=== PATIENT | male | born 1925 | race Caucasian/White ===

== ENCOUNTER 2017-03-13 10:32 | Inpatient (IN) | payer MEDICARE, OTHER ==
[~2017-03-13] VITALS: Ht 177.8 cm; Wt 104.7 kg
[2017-03-13] VITALS (13 sets, daily range): BP systolic 106–162; BP diastolic 54–74; PULSE 68–83; RESP 10–24; TEMP 97.8–99.2; O2SAT 83–100
[~2017-03-13 10:32] MED LIST: ALBUAER3 INH; AMLO5 PO; ASPI1TAB57 PO; CLOP75TA PO; COLA100C5 PO; FOLI1TAB6 PO; HYDR-3801 PO; IPRAAER INH; IPRASOL INH; ISOS20TA PO; LANTUS2P SQ; LIPI10TA PO; LOSA100T PO; METH2.5T PO; MIRA3350 PO; NOVOINJ3 SQ; ROSU5 PO; SITA25 PO; SYNT25TA PO; TYLE325T PO; [UNRECOGNIZED DRUG - CODE] PO
[2017-03-13] MEDS ORDERED: SENNOSIDES 8.6 MG TAB PO PRN (10:45)
[2017-03-13] MEDS ORDERED: MAGNESIUM HYDROXIDE SUSP 30 ML CUP PO PRN (10:45)
[2017-03-13] MEDS ORDERED: CHLORHEXIDINE GLUCONATE 2 % 1 PACK (2 CLOTHS) TOP PRN (10:45)
[2017-03-13] MEDS ORDERED: RESP: ALBUTEROL 2.5 MG/IPRATROPIUM 0.5 MG NEB (PRN) INH (10:45)
[2017-03-13] MEDS ORDERED: DEXTROSE 50% IN WATER 50 ML VIAL(D50) IV PUSH PRN (10:45)
[2017-03-13] MEDS ORDERED: LACTULOSE SYRUP 20 GM/30 ML CUP PO PRN (10:45)
[2017-03-13] MEDS ORDERED: BISACODYL 10 MG SUPP RECTAL PRN (10:45)
[2017-03-13] MEDS ORDERED: GLUCAGON 1 MG/ML VIAL OTHER PRN (10:45)
[2017-03-13] MEDS ORDERED: MISCELLANEOUS NURSING INFORMATION XX SCH (10:45)
[2017-03-13] MEDS ORDERED: FOLI1TAB6 PO (10:46)
[2017-03-13] MEDS: RESP: ALBUTEROL 2.5 MG/IPRATROPIUM 0.5 MG NEB (SCH) INH ×3 (11:15→19:37)
[2017-03-13] MEDS ORDERED: FAMOTIDINE 20 MG/2 ML VIAL IV PUSH SCH (11:30)
[2017-03-13] MEDS: SODIUM CHLOR 0.9% 1000 ML INJ 1,000 ML IV SCH (11:30)
--- NOTE | 2017-03-13 11:30 | MH ---
cc: RACHANA TATUM M.D. DATE OF ADMISSION: 03/13/2017 HISTORY OF PRESENT ILLNESS: The patient is an 89-year-old male with past medical history of coronary artery disease, previous CABG, hypertension, diabetes mellitus, hyperlipidemia, prostate cancer, hypothyroidism and rheumatoid arthritis. The patient was initially hospitalized at [facility] for generalized weakness, frequent falls and difficulty ambulating. During his hospital stay, he was seen by a neurologist and had a CT scan of the brain which showed no acute intracranial findings. The patient was transferred to [facility] for therapy yesterday. According to his medical records, the patient was noted to have bradycardia at the outside facility. He also was evaluated by cardiology at [place] for syncope, which was thought secondary to beta-krystina and it was discontinued. A HaliCAT was called as the patient looked ashen and had questionable syncopal episode. He was placed back in bed where he improved spontaneously. The patient was transferred to the intensive care unit for close observation. When seen, he is on room air oxygen with a pulse of 69, blood pressure 130/59, saturation 95% on room air. A Segundo Blue was called in [facility]; however, the patient did not receive any medications or CPR. PAST MEDICAL HISTORY: His past medical history is significant for: 1. Hypertension. 2. Diabetes. 3. Hyperlipidemia. 4. Coronary artery disease. 5. Hypothyroidism. 6. Prostate cancer. 7. Rheumatoid arthritis. PAST SURGICAL HISTORY: 1. Previous kyphoplasty seven or eight years ago. 2. Previous CABG. 3. Previous catheterization. 4. Stent placement x5. 5. Previous abdominal surgery. ALLERGIES: NO KNOWN DRUG ALLERGIES. SOCIAL HISTORY: Remote history of tobacco use. CURRENT MEDICATIONS: 1. Aspirin. 2. Plavix. 3. Lipitor. 4. Boniva. 5. Insulin. 6. Synthroid. FAMILY HISTORY: Noncontributory to the present illness. REVIEW OF SYSTEMS: The review of systems is as per the history of present illness, and the rest of the review of systems is unremarkable. PHYSICAL EXAMINATION: GENERAL: An 89-year-old male lying in bed in no acute distress on room air oxygen. VITAL SIGNS: Afebrile, pulse of 69, blood pressure 138/59, saturation 95% on room air. HEAD, EYES, EARS, NOSE, THROAT: Normocephalic and atraumatic. Pupils equal, round and reactive to light and accommodation. Extraocular muscles intact. Conjunctivae are pink. Nonicteric sclerae. Oral mucosa within normal limits. NECK: The neck is supple. No jugular venous distention, adenopathy or thyromegaly. Trachea in the midline. CARDIOVASCULAR: Regular rate and rhythm. Normal S1-S2. No murmurs, rubs or gallops noted. PULMONARY: Bilateral equal air entry. No rales or wheezing. ABDOMEN: The abdomen is soft, obese, nontender and no distention. Positive bowel sounds. EXTREMITIES: No cyanosis, clubbing or edema. NEUROLOGIC: No focal sensory deficit. Awake and alert. LABORATORY DATA: None available. IMPRESSION: 1. Status post syncopal episode. 2. Generalized weakness and frequent falls. 3. History of coronary artery disease and CABG. 4. Hypertension. 5. Diabetes mellitus. 6. Hyperlipidemia. 7. Hypothyroidism. 8. History of prostate cancer. 9. Rheumatoid arthritis. RECOMMENDATIONS: 1. Monitor neuro status closely and avoid any sedatives. 2. I will proceed with CT scan of the brain without contrast. In addition, will obtain a Doppler ultrasound of the carotid arteries. 3. Monitor heart rate and blood pressure closely and maintain MAP greater than 65 mmHg. 4. Continue with aspirin 81 milligrams daily and Plavix 75 milligrams daily. 5. Avoid beta krystina or calcium channel krystina as the patient has a history of bradycardia, which was thought to be related to a beta krystina at [facility].. 6. Will obtain cardiac enzymes with troponin and EKG. 7. Will check 2D echocardiogram to evaluate left ventricular function and to rule out regional wall motion abnormalities. 8. Continue oxygen PRN to maintain saturations above 92%. 9. Bronchodilators in the form of DuoNeb q. 6 plus q. 2 PRN for shortness of breath. 10. Monitor renal function and electrolyte replacement as needed. Place on normal saline at 75 mL/hour. 11. Place on Pepcid for GI prophylaxis. Start Heart healthy diet as papo. 13. Monitor for signs of infection, which include fever and WBCs. Fraser culture if spikes fever. Will check a baseline chest x-ray. 14. Monitor CBC and continue with folic acid 1 [address] on sliding scale insulin with Accu-Chek for glycemic control. 16. Resume Synthroid at 25 micrograms daily, his home medication. 17. Check a baseline TSH level. 18. GI prophylaxis with Pepcid and DVT prophylaxis with SCDs and start heparin subcutaneous for DVT prophylaxis if CT brain is negative for acute findings. Case was discussed with the nursing staff and with the patient's son, who is present at the bedside. MD ELIZABETH Rowley/SANTOSH /10:45 AM /10:59 AM LEVAR
--- NOTE | 2017-03-13 11:49 | RADRPT ---
EXAM DATE/TIME: 03/13/2017 11:31 [facility] COMPARISON: No previous studies available for comparison. INDICATIONS : Syncopal episode. RADIATION DOSE: 32.86 CTDIvol (mGy) moderate motion artifact requiring repeating multiple slices. MEDICAL HISTORY : Stroke. Congestive heart failure. Hypertension.Diabetes, prostate cancer. SURGICAL HISTORY : None. ENCOUNTER: Initial ACUITY: 1 day PAIN SCALE: 2/10 LOCATION: Bilateral head TECHNIQUE: Multiple contiguous axial images were obtained of the head. Using automated exposure control and adj ustment of the mA and/or kV according to patient size, radiation dose was kept as low as reasonably a chievable to obtain optimal diagnostic quality images. DICOM format image data is available electro nically for review and comparison. FINDINGS: There is marked central and cortical atrophy with dilatation of ventricular and sulcal spaces. There is no parenchymal hemorrhage, acute infarction or mass lesion identified. There are no extra-axial fluid collections appreciated. The posterior fossa is unremarkable with midline fourth ventricle. T he portion of the orbits and paranasal sinuses visualized are unremarkable. CONCLUSION: Moderate motion artifact, atrophy, negative for acute process.. Harish Emmanuel MD FACR on March 13, 2017 at 11:45 Board Certified Radiologist. This report was verified electronically.
--- NOTE | 2017-03-13 11:52 | RADRPT ---
EXAM DATE/TIME: 03/13/2017 00:00 [facility] COMPARISON: No previous studies available for comparison. INDICATIONS : Shortness of breath. MEDICAL HISTORY : None. SURGICAL HISTORY : CABG. ENCOUNTER: Initial ACUITY: 1 day PAIN SCORE: Non-responsive. LOCATION: Bilateral chest FINDINGS: Moderate elevation right hemidiaphragm. Minimal bibasilar probable changes. Mild compensated cardio megaly. History of previous bypass. CONCLUSION: Bibasilar parenchymal changes with elevation right hemidiaphragm otherwise negative. Harish Emmanuel MD FACR on March 13, 2017 at 11:49 Board Certified Radiologist. This report was verified electronically.
[2017-03-13] MEDS: INSULIN NovoLIN REGULAR SUPPLEMENTAL SCALE SQ SCH ×2 (12:00→20:00)
[2017-03-13 12:29] LABS: AUTOMATED NEUTROPHIL # 5.4 TH/MM3 (1.8-7.7); BASOPHIL % 0.3 % (0.0-2.0); EOSINOPHIL # 0.1 TH/MM3 (0-0.4); EOSINOPHIL % 2.2 % (0.0-4.0); HEMATOCRIT 30.5 % (39.0-51.0); HEMOGLOBIN 10.4 GM/DL (13.0-17.0); LYMPH % 13.6 % (9.0-44.0); LYMPHOCYTE # 0.9 TH/MM3 (1.0-4.8); MEAN CELL VOLUME 92.3 FL (80.0-100.0); MEAN CORPUSCULAR HEMOGLOBIN 31.5 PG (27.0-34.0); MEAN CORPUSCULAR HGB CONC 34.1 % (32.0-36.0); MONO % 3.3 % (0.0-8.0); MONOCYTE # 0.2 TH/MM3 (0-0.9); NEUT % 80.6 % (16.0-70.0); PLATELET COUNT 146 TH/MM3 (150-450); RED BLOOD COUNT 3.31 MIL/MM3 (4.50-5.90); RED CELL DISTRIBUTION WIDTH 16.6 % (11.6-17.2); WHITE BLOOD COUNT 6.7 TH/MM3 (4.0-11.0)
[2017-03-13 12:35] LABS: INTERNATIONAL NORMALIZED RATIO 1.1 RATIO; PROTHROMBIN TIME - PATIENT 10.9 SEC (9.8-11.6)
[2017-03-13 12:42] LABS: ALBUMIN 2.6 GM/DL (3.4-5.0); AST (GOT) 76 U/L (15-37); BICARBONATE 30.1 MEQ/L (21.0-32.0); BLOOD UREA NITROGEN 22 MG/DL (7-18); CALCIUM 7.9 MG/DL (8.5-10.1); CHLORIDE 103 MEQ/L (98-107); CREATININE 1.24 MG/DL (0.60-1.30); GLOMERULAR FILTRATION RATE 55 ML/MIN (>89); GLUCOSE,RANDOM 178 MG/DL (74-106); SODIUM (NA) 139 MEQ/L (136-145)
[2017-03-13 12:48] LABS: ALKALINE PHOSPHATASE 84 U/L (45-117); ALT (GPT) 64 U/L (12-78); PHOSPHORUS 1.6 MG/DL (2.5-4.9); TOTAL BILIRUBIN ADULT 0.7 MG/DL (0.2-1.0); TROPONIN I 0.04 NG/ML (0.02-0.05)
[2017-03-13] MEDS ORDERED: MAGNESIUM OXIDE 400 MG TAB PO PRN (13:00)
[2017-03-13] MEDS ORDERED: POTASSIUM CHLORIDE 25 MEQ EFFERVESCENT TAB PO PRN (13:00)
[2017-03-13] MEDS ORDERED: POTASSIUM PHOSPHATE MONOBASIC 500 MG TAB PO PRN (13:00)
[2017-03-13] MEDS ORDERED: POTASSIUM PHOSPHATE MONOBASIC 500 MG TAB PO/TUBE PRN (13:00)
[2017-03-13] MEDS ORDERED: MAGNESIUM SULFATE INJ 2 GM in SODIUM CHLORIDE 0.9% INJ 96 ML IV PRN (13:00)
[2017-03-13] MEDS ORDERED: SODIUM PHOSPHATE INJ 30 MMOL in SODIUM CHLOR 0.9% 250 ML INJ 240 ML IV PRN (13:00)
[2017-03-13] MEDS ORDERED: POTASSIUM CHLOR 20 MEQ PREMIX 100 ML IV PRN ×2 (13:00)
[2017-03-13] MEDS ORDERED: POTASSIUM CHLOR 40 MEQ PREMIX 100 ML IV PRN ×2 (13:00)
[2017-03-13] MEDS ORDERED: POTASSIUM PHOSPHATE INJ 30 MMOL in SODIUM CHLOR 0.9% 250 ML INJ 250 ML IV PRN (13:00)
[2017-03-13] MEDS ORDERED: MAGNESIUM SULFATE INJ 4 GM in SODIUM CHLORIDE 0.9% INJ 92 ML IV PRN (13:00)
--- NOTE | 2017-03-13 14:59 | RADRPT ---
EXAM DATE/TIME: 03/13/2017 14:23 [facility] COMPARISON: No previous studies available for comparison. INDICATIONS : Syncope. MEDICAL HISTORY : Stroke. Congestive heart failure. Hypertension. Thyroid disease. Cardiomyopathy . COPD. Dyspnea. Arthritis. Diabetes. Prostate cancer. SURGICAL HISTORY : Orthopedic surgery. ENCOUNTER: Initial ACUITY: 1 day PAIN SCORE: 2/10 LOCATION: Bilateral neck PEAK SYSTOLIC VELOCITIES (cm/sec): ICA/CCA RATIO: Right: 1.1 Left: 1.1 ICA: Right: 83.8 Left: 80.6 CCA: Right: 76.5 Left: 72.9 ECA: Right: 103.2 Left: 123.9 VERTEBRAL: Right: 54.8 antegrade Left: 58.0 antegrade Elevated flow velocities and ICA/CCA ratios have been found to correlate with increased degrees of vessel stenosis, calculated as percentage of diameter relative to a normal segment of distal ICA/CCA FINDINGS: RIGHT CAROTID: There is no evidence for a hemodynamically significant carotid stenosis. Minimal int imal hyperplasia is present with scattered calcific plaque. LEFT CAROTID: There is no evidence for a hemodynamically significant carotid stenosis. Minimal inti mal hyperplasia is present with scattered calcific plaque. VERTEBRAL ARTERIES: Flow is antegrade in both vertebral arteries. MISCELLANEOUS: There are no ancillary masses or adenopathy. CONCLUSION: Negative examination for a hemodynamically significant carotid stenosis. Board Certified Radiologist. This report was verified electronically.
[2017-03-13] MEDS: DOCUSATE SODIUM 50 MG/SENNA 8.6 MG TAB PO SCH (22:14)
[2017-03-13] MEDS: FAMOTIDINE 20 MG TAB PO SCH (22:14)
[2017-03-13] MEDS: HEPARIN SODIUM - SQ 10,000 UNITS/ML VIAL SQ SCH (22:15)
[2017-03-14] VITALS (13 sets, daily range): BP systolic 116–159; BP diastolic 61–89; PULSE 62–106; RESP 14–22; TEMP 97.8–101; O2SAT 94–99
[2017-03-14] MEDS: RESP: ALBUTEROL 2.5 MG/IPRATROPIUM 0.5 MG NEB (SCH) INH ×6 (03:16→20:30)
[2017-03-14] MEDS: CHLORHEXIDINE GLUCONATE 2 % 1 PACK (2 CLOTHS) TOP SCH (04:00)
[2017-03-14] MEDS: INSULIN NovoLIN REGULAR SUPPLEMENTAL SCALE SQ SCH ×6 (04:00→20:56)
[2017-03-14 04:30] LABS: AUTOMATED NEUTROPHIL # 3.1 TH/MM3 (1.8-7.7); BASOPHIL % 0.3 % (0.0-2.0); EOSINOPHIL # 0.2 TH/MM3 (0-0.4); HEMATOCRIT 28.4 % (39.0-51.0); HEMOGLOBIN 9.3 GM/DL (13.0-17.0); LYMPH % 24.6 % (9.0-44.0); LYMPHOCYTE # 1.1 TH/MM3 (1.0-4.8); MEAN CORPUSCULAR HEMOGLOBIN 30.5 PG (27.0-34.0); MEAN CORPUSCULAR HGB CONC 32.8 % (32.0-36.0); MEAN PLATELET VOLUME 8.2 FL (7.0-11.0); MONO % 3.5 % (0.0-8.0); MONOCYTE # 0.2 TH/MM3 (0-0.9); NEUT % 67.6 % (16.0-70.0); PLATELET COUNT 146 TH/MM3 (150-450); RED BLOOD COUNT 3.06 MIL/MM3 (4.50-5.90); WHITE BLOOD COUNT 4.5 TH/MM3 (4.0-11.0)
[2017-03-14] MEDS: SODIUM CHLOR 0.9% 1000 ML INJ 1,000 ML IV SCH (04:42)
[2017-03-14 04:56] LABS: BICARBONATE 30.5 MEQ/L (21.0-32.0); CALCIUM 7.6 MG/DL (8.5-10.1); CREATININE 1.07 MG/DL (0.60-1.30); PHOSPHORUS 2.2 MG/DL (2.5-4.9)
[2017-03-14] MEDS: LEVOTHYROXINE SODIUM 25 MCG TAB PO SCH (05:59)
[2017-03-14] MEDS: HEPARIN SODIUM - SQ 10,000 UNITS/ML VIAL SQ SCH ×2 (09:20→20:57)
[2017-03-14] MEDS: ASPIRIN EC 81 MG TABEC PO SCH (09:20)
[2017-03-14] MEDS: DOCUSATE SODIUM 50 MG/SENNA 8.6 MG TAB PO SCH ×2 (09:21→20:57)
[2017-03-14] MEDS: FOLIC ACID 1 MG TAB PO SCH (09:21)
[2017-03-14] MEDS: CLOPIDOGREL 75 MG TAB PO SCH (09:21)
[2017-03-14] MEDS: FAMOTIDINE 20 MG TAB PO SCH ×2 (09:21→20:57)
--- NOTE | 2017-03-14 10:00 | HHI.CCPN ---
Subjective Remarks/Hospital Course Patient is an 89-year-old male with past medical history of coronary arterydisease, previous CABG, hypertension, diabetes mellitus, hyperlipidemia, prostate cancer, hypothyroidism and rheumatoid arthritis. The patient was initially hospitalized at [facility] for generalized weakness, frequent falls and difficulty ambulating. During his hospital stay, he was seen by a neurologist and had a CT scan of the brain which showed no acute intracranial findings. The patient was transferred to [facility] for therapy yesterday. According to his medical records, the patient was noted to have bradycardia at the outside facility. He also was evaluated by cardiology at [place] for syncope, which was thought secondary to beta-krystina and it was discontinued. A HaliCAT was called as the patient looked ashen and had questionable syncopal episode. He was placed back in bed where he improved spontaneously. The patient was transferred to the intensive care unit for close observation. When seen, he is on room air oxygen with a pulse of 69, blood pressure 130/59, saturation 95% on room air. A Code Blue was called in [facility]; however, the patient did not receive any medications or CPR. 03/14 No events overnight. Patient is lying in bed in NAD. Afebrile. Objective Vital Signs Date Time Temp Pulse Resp B/P (MAP) Pulse Ox O2 Delivery O2 Flow Rate FiO2 03/14/17 06:00 67 03/14/17 04:00 97.8 16 146/68 (94) 96 03/13/17 19:38 Nasal Cannula 3.00 Intake and Output 03/14/17 03/14/17 03/15/17 08:00 16:00 00:00 Intake Total 1709 ml Output Total 500 ml Balance 1209 ml Result Diagram: 03/14/17 0347 03/14/17 0347 Other Results Laboratory Tests Test 03/13/17 12:05 03/13/17 14:20 03/14/17 03:47 White Blood Count 6.7 TH/MM3 4.5 TH/MM3 Red Blood Count 3.31 MIL/MM3 3.06 MIL/MM3 Hemoglobin 10.4 GM/DL 9.3 GM/DL Hematocrit 30.5 % 28.4 % Mean Corpuscular Volume 92.3 FL 93.0 FL Mean Corpuscular Hemoglobin 31.5 PG 30.5 PG Mean Corpuscular Hemoglobin Concent 34.1 % 32.8 % Red Cell Distribution Width 16.6 % 17.0 % Platelet Count 146 TH/MM3 146 TH/MM3 Mean Platelet Volume 8.0 FL 8.2 FL Neutrophils (%) (Auto) 80.6 % 67.6 % Lymphocytes (%) (Auto) 13.6 % 24.6 % Monocytes (%) (Auto) 3.3 % 3.5 % Eosinophils (%) (Auto) 2.2 % 4.0 % Basophils (%) (Auto) 0.3 % 0.3 % Neutrophils # (Auto) 5.4 TH/MM3 3.1 TH/MM3 Lymphocytes # (Auto) 0.9 TH/MM3 1.1 TH/MM3 Monocytes # (Auto) 0.2 TH/MM3 0.2 TH/MM3 Eosinophils # (Auto) 0.1 TH/MM3 0.2 TH/MM3 Basophils # (Auto) 0.0 TH/MM3 0.0 TH/MM3 CBC Comment DIFF FINAL DIFF FINAL Differential Comment Prothrombin Time 10.9 SEC Prothromb Time International Ratio 1.1 RATIO Blood Urea Nitrogen 22 MG/DL 20 MG/DL Creatinine 1.24 MG/DL 1.07 MG/DL Random Glucose 178 MG/DL 148 MG/DL Total Protein 6.0 GM/DL Albumin 2.6 GM/DL Calcium Level 7.9 MG/DL 7.6 MG/DL Phosphorus Level 1.6 MG/DL 2.2 MG/DL Magnesium Level 2.0 MG/DL 2.0 MG/DL Alkaline Phosphatase 84 U/L Aspartate Amino Transf (AST/SGOT) 76 U/L Alanine Aminotransferase (ALT/SGPT) 64 U/L Total Bilirubin 0.7 MG/DL Sodium Level 139 MEQ/L 139 MEQ/L Potassium Level 3.7 MEQ/L 3.6 MEQ/L Chloride Level 103 MEQ/L 105 MEQ/L Carbon Dioxide Level 30.1 MEQ/L 30.5 MEQ/L Anion Gap 6 MEQ/L 4 MEQ/L Estimat Glomerular Filtration Rate 55 ML/MIN 65 ML/MIN Total Creatine Kinase 30 U/L Troponin I 0.04 NG/ML Thyroid Stimulating Hormone 3rd Gen 3.510 uIU/ML Nasal Screen MRSA (PCR) MRSA NOT DETECTED Imaging Last Impressions Head CT 03/13/17 0000 Signed Impressions: Service Date/Time: Monday, March 13, 2017 11:31 - CONCLUSION: Moderate motion artifact, atrophy, negative for acute process.. Harish Emmanuel MD FACR Chest X-Ray 03/13/17 0000 Signed Impressions: Service Date/Time: Monday, March 13, 2017 00:00 - CONCLUSION: Bibasilar parenchymal changes with elevation right hemidiaphragm otherwise negative. Harish Emmanuel MD FACR Carotid Artery Ultrasound 03/13/17 0000 Signed Impressions: Service Date/Time: Monday, March 13, 2017 14:23 - CONCLUSION: Negative examination for a hemodynamically significant carotid stenosis. Board Certified Radiologist. This report was verified electronically. Objective Remarks GENERAL: Patient is 89 yo lying in bed in NAD SKIN: Warm and dry. HEAD: Normocephalic. EYES: No scleral icterus. No injection or drainage. NECK: Supple, trachea midline. No JVD or lymphadenopathy. CARDIOVASCULAR: Regular rate and rhythm without murmurs, gallops, or rubs. RESPIRATORY: Breath sounds equal bilaterally. No accessory muscle use. GASTROINTESTINAL: Abdomen soft, non-tender, nondistended. MUSCULOSKELETAL: No cyanosis, or edema. Neuro: Awake A/P Assessment and Plan 1. Status post syncopal episode. 2. Generalized weakness and frequent falls. 3. History of coronary artery disease and CABG. 4. Hypertension. 5. Diabetes mellitus. 6. Hyperlipidemia. 7. Hypothyroidism. 8. History of prostate cancer. 9. Rheumatoid arthritis. Plan Neuro: Monitor neuro status closely and avoid any sedatives. CT brain yesterday negative for acute process. Doppler US carotid arteries: Negative for hemodynamically significant carotid stenosis. CV: Monitor HR and BP and maintain MAP> 65 mmHg. Continue with ASA 81 mg daily and Plavix 75 mg daily. Avoid beta krystina or calcium channel krystina as the patient has a history of bradycardia, which was thought to be related to a beta krystina at [facility].. Check 2D echo to evaluate left ventricular function Pulm: Continue oxygen PRN to maintain sats > 92%. Bronchodilators : Monitor renal function and electrolyte replacement as needed. Will need Phos replacement today GI: On Pepcid for GI prophylaxis. Heart healthy diet ID: Monitor for signs of infection( fever and WBCs). Fraser culture if spikes fever. Endo: SSI with Accu-Chek for glycemic control. On Synthroid at 25 mcg daily, TSH: 3.5 GI prophylaxis with Pepcid and DVT prophylaxis with SCDs/Heparin SQ Level 2 Saundra Mehta MD Mar 14, 2017 10:00
--- NOTE | 2017-03-14 17:45 | ECHRPT ---
Indication: SYNCOPAL EPISODE CONCLUSIONS Normal left ventricular size. Wall thickness is measured at the upper limits of normal. The left ventricular systolic function is low normal with an estimated ejection fraction in the rang e of 50- 55%. Mitral annular calcification is present. Mild thickening of the mitral valve leaflets. Mild mitral valve regurgitation. Aortic valve sclerosis is present. There is mild tricuspid valve regurgitation. There is estimated moderate pulmonary hypertension present (55 mmHg). BP: / HR: Rhythm: MEASUREMENTS (Male / Female) Normal Values Technical Quality: 2D ECHO LV Diastolic Diameter PLAX 4.5 cm 4.2 - 5.9 / 3.9 - 5.3 cm LV Systolic Diameter PLAX 3.5 cm IVS Diastolic Thickness 1.2 cm 0.6 - 1.0 / 0.6 - 0.9 cm LVPW Diastolic Thickness 0.7 cm 0.6 - 1.0 / 0.6 - 0.9 cm LV Relative Wall Thickness 0.4 RV Internal Dim ED PLAX 2.6 cm LA Systolic Diameter LX 3.7 cm 3.0 - 4.0 / 2.7 - 3.8 cm DOPPLER AV Peak Velocity 132.0 cm/s AV Peak Gradient 7.0 mmHg Mitral E Point Velocity 98.7 cm/s Mitral A Point Velocity 103.0 cm/s Mitral E to A Ratio 1.0 TR Peak Velocity 353.0 cm/s TR Peak Gradient 49.8 mmHg FINDINGS LEFT VENTRICLE Normal left ventricular size. Wall thickness is measured at the upper limits of normal. The left ventricular systolic function is low normal with an estimated ejection fraction in the rang e of 50- 55%. RIGHT VENTRICLE Normal right ventricular size and systolic function. LEFT ATRIUM The left atrial size is normal. RIGHT ATRIUM The right atrial size is normal. ATRIAL SEPTUM Normal atrial septal thickness without atrial level shunting by limited color doppler interrogation. AORTA The aortic root and proximal ascending aorta are normal in size on limited imaging. MITRAL VALVE Mitral annular calcification is present. Mild thickening of the mitral valve leaflets. Mild mitral valve regurgitation. AORTIC VALVE Aortic valve sclerosis is present. TRICUSPID VALVE There is mild tricuspid valve regurgitation. There is estimated moderate pulmonary hypertension present (55 mmHg). PULMONARY VALVE The pulmonary valve is not well visualized. VESSELS The inferior vena cava is normal in size. PERICARDIUM No pericardial effusion. Ted Archuleta MD, FACC (Electronically Signed) Final Date:14 March 2017 17:44
[2017-03-15] VITALS (19 sets, daily range): BP systolic 127–168; BP diastolic 59–79; PULSE 72–98; RESP 16–21; TEMP 97.5–99.2; O2SAT 93–100
[2017-03-15] MEDS: RESP: ALBUTEROL 2.5 MG/IPRATROPIUM 0.5 MG NEB (SCH) INH ×7 (03:49→23:56)
[2017-03-15] MEDS: CHLORHEXIDINE GLUCONATE 2 % 1 PACK (2 CLOTHS) TOP SCH (04:00)
[2017-03-15] MEDS: INSULIN NovoLIN REGULAR SUPPLEMENTAL SCALE SQ SCH ×6 (05:48→21:06)
[2017-03-15 06:45] LABS: AUTOMATED NEUTROPHIL # 2.1 TH/MM3 (1.8-7.7); BASOPHIL % 0.2 % (0.0-2.0); EOSINOPHIL # 0.2 TH/MM3 (0-0.4); EOSINOPHIL % 4.4 % (0.0-4.0); HEMATOCRIT 29.2 % (39.0-51.0); HEMOGLOBIN 9.6 GM/DL (13.0-17.0); LYMPH % 37.2 % (9.0-44.0); LYMPHOCYTE # 1.5 TH/MM3 (1.0-4.8); MEAN CELL VOLUME 93.6 FL (80.0-100.0); MEAN CORPUSCULAR HEMOGLOBIN 30.9 PG (27.0-34.0); MEAN PLATELET VOLUME 8.1 FL (7.0-11.0); MONO % 5.6 % (0.0-8.0); MONOCYTE # 0.2 TH/MM3 (0-0.9); NEUT % 52.6 % (16.0-70.0); PLATELET COUNT 153 TH/MM3 (150-450); RED BLOOD COUNT 3.12 MIL/MM3 (4.50-5.90); RED CELL DISTRIBUTION WIDTH 16.5 % (11.6-17.2); WHITE BLOOD COUNT 3.9 TH/MM3 (4.0-11.0)
[2017-03-15 07:06] LABS: BICARBONATE 28.1 MEQ/L (21.0-32.0); CALCIUM 7.4 MG/DL (8.5-10.1); CREATININE 0.81 MG/DL (0.60-1.30); MAGNESIUM 1.9 MG/DL (1.5-2.5); PHOSPHORUS 2.1 MG/DL (2.5-4.9)
--- NOTE | 2017-03-15 09:21 | EKG ---
Date Performed: 03/13/2017 Time Performed: 16:16:02 PTAGE: 89 years EKG: Sinus rhythm WITH FIRST DEGREE AV BLOCK VOLTAGE CRITERIA FOR LVH POSSIBLE ANTERIOR MYOCARDIAL INFARCTION , OF IND ETERMINATE AGE INFERIOR MYOCARDIAL INFARCTION , PROBABLY OLD MODERATE T-WAVE ABNORMALITY ABNORMAL ECG PREVIOUS TRACING : 09/25/1999 07.48 Compared to the previous tracing abnormal R wave progressio n present DOCTOR: Ted Archuleta Interpretating Date/Time 03/15/2017 09:20:24
[2017-03-15] MEDS: CLOPIDOGREL 75 MG TAB PO SCH (09:31)
[2017-03-15] MEDS: ASPIRIN EC 81 MG TABEC PO SCH (09:31)
[2017-03-15] MEDS: FAMOTIDINE 20 MG TAB PO SCH ×2 (09:31→21:04)
[2017-03-15] MEDS: FOLIC ACID 1 MG TAB PO SCH (09:31)
[2017-03-15] MEDS: DOCUSATE SODIUM 50 MG/SENNA 8.6 MG TAB PO SCH ×2 (09:31→21:00)
[2017-03-15] MEDS: HEPARIN SODIUM - SQ 10,000 UNITS/ML VIAL SQ SCH ×2 (09:32→21:05)
--- NOTE | 2017-03-15 13:04 | HHI.CCPN ---
Subjective Remarks/Hospital Course Patient is an 89-year-old male with past medical history of coronary arterydisease, previous CABG, hypertension, diabetes mellitus, hyperlipidemia, prostate cancer, hypothyroidism and rheumatoid arthritis. The patient was initially hospitalized at [facility] for generalized weakness, frequent falls and difficulty ambulating. During his hospital stay, he was seen by a neurologist and had a CT scan of the brain which showed no acute intracranial findings. The patient was transferred to [facility] for therapy yesterday. According to his medical records, the patient was noted to have bradycardia at the outside facility. He also was evaluated by cardiology at [place] for syncope, which was thought secondary to beta-krystina and it was discontinued. A HaliCAT was called as the patient looked ashen and had questionable syncopal episode. He was placed back in bed where he improved spontaneously. The patient was transferred to the intensive care unit for close observation. When seen, he is on room air oxygen with a pulse of 69, blood pressure 130/59, saturation 95% on room air. [facility]; however, the patient did not receive any medications or CPR. 03/14 No events overnight. Patient is lying in bed in NAD. Afebrile. 03/15: Objective Vital Signs Date Time Temp Pulse Resp B/P (MAP) Pulse Ox O2 Delivery O2 Flow Rate FiO2 03/15/17 11:41 93 03/15/17 11:00 79 03/15/17 09:04 Nasal Cannula 2.00 03/15/17 08:00 98.5 16 162/75 (104) Intake and Output 03/15/17 03/15/17 03/16/17 08:00 16:00 00:00 Intake Total 1875 ml Output Total 850 ml Balance 1025 ml Result Diagram: 03/15/17 0427 03/15/17 0427 Imaging Last Impressions Head CT 03/13/17 0000 Signed Impressions: Service Date/Time: Monday, March 13, 2017 11:31 - CONCLUSION: Moderate motion artifact, atrophy, negative for acute process.. Harish Emmanuel MD FACR Chest X-Ray 03/13/17 0000 Signed Impressions: Service Date/Time: Monday, March 13, 2017 00:00 - CONCLUSION: Bibasilar parenchymal changes with elevation right hemidiaphragm otherwise negative. Harish Emmanuel MD FACR Carotid Artery Ultrasound 03/13/17 0000 Signed Impressions: Service Date/Time: Monday, March 13, 2017 14:23 - CONCLUSION: Negative examination for a hemodynamically significant carotid stenosis. Board Certified Radiologist. This report was verified electronically. Objective Remarks GENERAL: Patient is 89 yo lying in bed in NAD SKIN: Warm and dry. HEAD: Normocephalic. EYES: No scleral icterus. No injection or drainage. NECK: Supple, trachea midline. No JVD or lymphadenopathy. CARDIOVASCULAR: Regular rate and rhythm without murmurs, gallops, or rubs. RESPIRATORY: Breath sounds equal bilaterally. No accessory muscle use. GASTROINTESTINAL: Abdomen soft, non-tender, nondistended. MUSCULOSKELETAL: No cyanosis, or edema. Neuro: Awake A/P Assessment and Plan 1. Status post syncopal episode. 2. Generalized weakness and frequent falls. 3. History of coronary artery disease and CABG. 4. Hypertension. 5. Diabetes mellitus. 6. Hyperlipidemia. 7. Hypothyroidism. 8. History of prostate cancer. 9. Rheumatoid arthritis. Plan Neuro: Monitor neuro status closely and avoid any sedatives. CT brain yesterday negative for acute process. Doppler US carotid arteries: Negative for hemodynamically significant carotid stenosis. CV: Monitor HR and BP and maintain MAP> 65 mmHg. Continue with ASA 81 mg daily and Plavix 75 mg daily. Avoid beta krystina or calcium channel krystina as the patient has a history of bradycardia, which was thought to be related to a beta krystina at [facility].. Check 2D echo to evaluate left ventricular function Pulm: Continue oxygen PRN to maintain sats > 92%. Bronchodilators : Monitor renal function and electrolyte replacement as needed. Will need Phos replacement today GI: On Pepcid for GI prophylaxis. Heart healthy diet ID: Monitor for signs of infection( fever and WBCs). Fraser culture if spikes fever. Endo: SSI with Accu-Chek for glycemic control. On Synthroid at 25 mcg daily, TSH: 3.5 GI prophylaxis with Pepcid and DVT prophylaxis with SCDs/Heparin SQ Level 2 Henri Meyers MD Mar 15, 2017 13:04
[2017-03-16] VITALS (9 sets, daily range): BP systolic 137–190; BP diastolic 60–88; PULSE 74–97; RESP 18–20; TEMP 98–98.9; O2SAT 94–97
[2017-03-16] MEDS: INSULIN NovoLIN REGULAR SUPPLEMENTAL SCALE SQ SCH ×6 (00:11→20:39)
[2017-03-16] MEDS: RESP: ALBUTEROL 2.5 MG/IPRATROPIUM 0.5 MG NEB (SCH) INH ×7 (03:36→23:37)
[2017-03-16] MEDS: CHLORHEXIDINE GLUCONATE 2 % 1 PACK (2 CLOTHS) TOP SCH (04:00)
[2017-03-16] MEDS: cloNIDine HCL 0.1 MG TAB PO PRN ×2 (04:52→17:20)
[2017-03-16] MEDS: LEVOTHYROXINE SODIUM 25 MCG TAB PO SCH ×2 (05:56→06:33)
[2017-03-16] MEDS: ASPIRIN EC 81 MG TABEC PO SCH (08:18)
[2017-03-16] MEDS: FAMOTIDINE 20 MG TAB PO SCH ×2 (08:19→20:38)
[2017-03-16] MEDS: HEPARIN SODIUM - SQ 10,000 UNITS/ML VIAL SQ SCH ×2 (08:19→20:38)
[2017-03-16] MEDS: FOLIC ACID 1 MG TAB PO SCH (08:19)
[2017-03-16] MEDS: CLOPIDOGREL 75 MG TAB PO SCH (08:19)
[2017-03-16] MEDS: DOCUSATE SODIUM 50 MG/SENNA 8.6 MG TAB PO SCH ×2 (08:19→20:38)
--- NOTE | 2017-03-16 13:43 | HHI.PR ---
Subjective Remarks Follow-up syncopal episode. Patient denies chest pain, dyspnea, lightheadedness , dizziness. Does report cough that started this morning. Cough is nonproductive. Objective Vitals Vital Signs Date Time Temp Pulse Resp B/P (MAP) Pulse Ox O2 Delivery O2 Flow Rate FiO2 03/16/17 11:56 98.8 74 18 172/75 (107) 95 03/16/17 08:01 98.0 84 18 137/60 (85) 95 03/16/17 07:56 96 03/16/17 04:00 98.9 75 18 166/79 (108) 95 03/16/17 00:00 98.5 88 20 172/85 (114) 94 03/15/17 21:11 93 21 03/15/17 20:00 98.2 85 20 153/71 (98) 93 03/15/17 17:18 97.5 78 19 164/79 (107) 97 03/15/17 16:08 99 21 03/15/17 14:47 97.9 76 18 142/68 (92) 97 03/15/17 14:00 77 I/O 03/15/17 03/15/17 03/15/17 03/16/17 03/16/17 03/16/17 07:00 15:00 23:00 07:00 15:00 23:00 Intake Total 1650 ml 225 ml 480 ml Output Total 850 ml 450 ml 650 ml Balance 800 ml -225 ml 480 ml -650 ml Intake Oral 100 ml 480 ml IV Total 1550 ml 225 ml Output Urine Total 850 ml 450 ml 650 ml # Voids 1 # Bowel Movements 1 1 0 Result Diagram: 03/15/1742603/15/17426 Imaging Last Impressions Head CT 03/13/17 0000 Signed Impressions: Service Date/Time: Monday, March 13, 2017 11:31 - CONCLUSION: Moderate motion artifact, atrophy, negative for acute process.. Harish Emmanuel MD FACR Chest X-Ray 03/13/17 0000 Signed Impressions: Service Date/Time: Monday, March 13, 2017 00:00 - CONCLUSION: Bibasilar parenchymal changes with elevation right hemidiaphragm otherwise negative. Harish Emmanuel MD FACR Carotid Artery Ultrasound 03/13/17 0000 Signed Impressions: Service Date/Time: Monday, March 13, 2017 14:23 - CONCLUSION: Negative examination for a hemodynamically significant carotid stenosis. Board Certified Radiologist. This report was verified electronically. Objective Remarks General: Elderly male in no acute distress. Hard of hearing. Heart: Regular rate and rhythm. No murmur. Lungs: Clear to auscultation bilaterally. No wheezes, rales, or rhonchi. Breathing is nonlabored. Abdomen: Soft, nontender, nondistended. Extremities: No lower extremity edema. Psych: Alert and oriented. Procedures None Urinary Catheter: No Vascular Central Line Catheter: No A/P Assessment and Plan 1. Syncopal episode: Patient had episodes of bradycardia, felt to be related to beta krystina. The beta krystina has been discontinued. 2-D echocardiogram noted. Carotid artery ultrasound negative. CT of the head is negative. Monitor on telemetry. 2. Generalized weakness, frequent falls: Continue PT. 3. Coronary artery disease: Continue aspirin, Plavix. 4. Diabetes mellitus: Monitor Accu-Cheks and cover with sliding scale insulin. 5. Hypothyroidism: Continue Synthroid. 6. GI prophylaxis: Pepcid. 7. DVT prophylaxis: SCDs, heparin. 8. Hypertension: Avoid beta krystina, calcium channel krystina secondary to bradycardia, syncope. 9. Cough: Continue oxygen as needed. Bronchodilators as needed. Discharge Planning Possible discharge back to inpatient rehabilitation tomorrow. Rafael Obando MD Mar 16, 2017 13:43
[2017-03-17] VITALS: BP 125/68; PULSE 84; RESP 18; TEMP 97.9; O2SAT 95
[2017-03-17] MEDS: INSULIN NovoLIN REGULAR SUPPLEMENTAL SCALE SQ SCH ×4 (00:15→12:25)
[2017-03-17] MEDS: RESP: ALBUTEROL 2.5 MG/IPRATROPIUM 0.5 MG NEB (SCH) INH ×3 (03:30→11:31)
[2017-03-17 04:00] VITALS: BP 154/72; PULSE 67; RESP 18; TEMP 98; O2SAT 94
[2017-03-17] MEDS: CHLORHEXIDINE GLUCONATE 2 % 1 PACK (2 CLOTHS) TOP SCH (04:00)
[2017-03-17] MEDS: LEVOTHYROXINE SODIUM 25 MCG TAB PO SCH (05:57)
[2017-03-17 08:00] VITALS: BP 155/77; PULSE 63; RESP 18; TEMP 98.3; O2SAT 96
--- NOTE | 2017-03-17 08:55 | HHI.PR ---
Subjective Remarks Follow up syncopal episode. Patient denies chest pain, dyspnea. Does report nonproductive cough. Is requesting cough drops. Objective Vitals Vital Signs Date Time Temp Pulse Resp B/P (MAP) Pulse Ox O2 Delivery O2 Flow Rate FiO2 03/17/17 04:00 98.0 67 18 154/72 (99) 94 03/17/17 00:00 97.9 84 18 125/68 (87) 95 03/16/17 23:39 96 03/16/17 20:33 94 21 03/16/17 20:00 98.2 79 18 175/84 (114) 96 03/16/17 16:57 98.1 97 18 190/88 (122) 97 171/76 (107) 03/16/17 11:56 98.8 74 18 172/75 (107) 95 I/O 03/16/17 03/16/17 03/16/17 03/17/17 03/17/17 03/17/17 07:00 15:00 23:00 07:00 15:00 23:00 Output Total 650 ml 300 ml 325 ml 400 ml Balance -650 ml -300 ml -325 ml -400 ml Output Urine Total 650 ml 300 ml 325 ml 400 ml # Bowel Movements 0 0 Result Diagram: 03/15/1742603/15/17426 Imaging Last Impressions Head CT 03/13/17 0000 Signed Impressions: Service Date/Time: Monday, March 13, 2017 11:31 - CONCLUSION: Moderate motion artifact, atrophy, negative for acute process.. Harish Emmanuel MD FACR Chest X-Ray 03/13/17 0000 Signed Impressions: Service Date/Time: Monday, March 13, 2017 00:00 - CONCLUSION: Bibasilar parenchymal changes with elevation right hemidiaphragm otherwise negative. Harish Emmanuel MD FACR Carotid Artery Ultrasound 03/13/17 0000 Signed Impressions: Service Date/Time: Monday, March 13, 2017 14:23 - CONCLUSION: Negative examination for a hemodynamically significant carotid stenosis. Board Certified Radiologist. This report was verified electronically. Objective Remarks General: Elderly male in no acute distress. Hard of hearing. Heart: Regular rate and rhythm. No murmur. Lungs: Clear to auscultation bilaterally. No wheezes, rales, or rhonchi. Breathing is nonlabored. Abdomen: Soft, nontender, nondistended. Extremities: No lower extremity edema. Psych: Alert and oriented. Procedures None Urinary Catheter: No Vascular Central Line Catheter: No A/P Assessment and Plan 1. Syncopal episode: Patient had episodes of bradycardia, felt to be related to beta krystina. The beta krystina has been discontinued. 2-D echocardiogram noted. Carotid artery ultrasound negative. CT of the head is negative. Monitor on telemetry. Occasional PVCs noted, but otherwise sinus rhythm. 2. Generalized weakness, frequent falls: Continue PT. 3. Coronary artery disease: Continue aspirin, Plavix. 4. Diabetes mellitus: Monitor Accu-Cheks and cover with sliding scale insulin. 5. Hypothyroidism: Continue Synthroid. 6. GI prophylaxis: Pepcid. 7. DVT prophylaxis: SCDs, heparin. 8. Hypertension: Avoid beta krystina, calcium channel krystina secondary to bradycardia, syncope. 9. Cough: Continue oxygen as needed. Bronchodilators as needed. Discharge Planning Plan for discharge back to inpatient rehabilitation today pending lab results and review of telemetry. Rafael Obando MD Mar 17, 2017 08:55
--- NOTE | 2017-03-17 08:58 | HHI.DCPOC ---
Discharge Care Plan Diagnosis: (1) Syncope (2) Frequent falls (3) Bradycardia (4) Hyperlipidemia (5) Hypothyroidism (6) Hypertension Goals to Promote Your Health * To prevent worsening of your condition and complications * To maintain your health at the optimal level Directions to Meet Your Goals Take your medications as prescribed Follow your dietary instruction Follow activity as directed Keep your appointments as scheduled Take your immunizations and boosters as scheduled If your symptoms worsen call your PCP, if no PCP go to Urgent Care Center or Emergency Room Smoking is Dangerous to Your Health. Avoid second hand smoke Call the 24-hour hour crisis hotline for domestic abuse at Rafael Obando MD Mar 17, 2017 08:58
[2017-03-17 09:23] VITALS: O2SAT 94
[2017-03-17] MEDS: FAMOTIDINE 20 MG TAB PO SCH (09:23)
[2017-03-17] MEDS: DOCUSATE SODIUM 50 MG/SENNA 8.6 MG TAB PO SCH (09:24)
[2017-03-17] MEDS: CLOPIDOGREL 75 MG TAB PO SCH (09:24)
[2017-03-17] MEDS: ASPIRIN EC 81 MG TABEC PO SCH (09:24)
[2017-03-17] MEDS: FOLIC ACID 1 MG TAB PO SCH (09:25)
[2017-03-17] MEDS: HEPARIN SODIUM - SQ 10,000 UNITS/ML VIAL SQ SCH (09:25)
[2017-03-17 10:11] LABS: BASOPHIL % 0.5 % (0.0-2.0); EOSINOPHIL # 0.4 TH/MM3 (0-0.4); EOSINOPHIL % 10.6 % (0.0-4.0); HEMATOCRIT 30.9 % (39.0-51.0); LYMPH % 24.2 % (9.0-44.0); LYMPHOCYTE # 0.9 TH/MM3 (1.0-4.8); MEAN CELL VOLUME 94.6 FL (80.0-100.0); MEAN CORPUSCULAR HEMOGLOBIN 30.8 PG (27.0-34.0); MEAN CORPUSCULAR HGB CONC 32.5 % (32.0-36.0); MONO % 12.6 % (0.0-8.0); MONOCYTE # 0.5 TH/MM3 (0-0.9); NEUT % 52.1 % (16.0-70.0); PLATELET COUNT 134 TH/MM3 (150-450); RED BLOOD COUNT 3.27 MIL/MM3 (4.50-5.90); RED CELL DISTRIBUTION WIDTH 17.6 % (11.6-17.2); WHITE BLOOD COUNT 3.8 TH/MM3 (4.0-11.0)
[2017-03-17 10:39] LABS: BICARBONATE 27.1 MEQ/L (21.0-32.0); CALCIUM 8.1 MG/DL (8.5-10.1); CREATININE 0.95 MG/DL (0.60-1.30)
[2017-03-17 12:00] VITALS: BP 156/75; PULSE 75; RESP 18; TEMP 98; O2SAT 96
[2017-03-17] MEDS ORDERED: MENTHOL LOZENGE BUCCAL PRN (13:00)
--- NOTE | 2017-03-17 14:49 | HHI.DS ---
Discharge Summary Admission Date Mar 13, 2017 at 10:32 Discharge Date: Mar 17, 2017 Admitting Diagnosis Syncope (1) Syncope ICD Code: R55 - Syncope and collapse (2) Hypertension ICD Code: I10 - Essential (primary) hypertension Status: Chronic (3) Hypothyroidism ICD Code: E03.9 - Hypothyroidism, unspecified Status: Chronic (4) Hyperlipidemia ICD Code: E78.5 - Hyperlipidemia, unspecified Status: Chronic (5) Bradycardia ICD Code: R00.1 - Bradycardia, unspecified Status: Acute Procedures None Brief History - From Admission The patient is an 89-year-old male with past medical history of coronary artery disease, previous CABG, hypertension, diabetes mellitus, hyperlipidemia, prostate cancer, hypothyroidism and rheumatoid arthritis. The patient was initially hospitalized at [facility] for generalized weakness, frequent falls and difficulty ambulating. During his hospital stay, he was seen by a neurologist and had a CT scan of the brain which showed no acute intracranial findings. The patient was transferred to [facility] for therapy yesterday. According to his medical records, the patient was noted to have bradycardia at the outside facility. He also was evaluated by cardiology at [facility] for syncope, which was thought secondary to beta-krystina and it was discontinued. A HaliCAT was called as the patient looked ashen and had questionable syncopal episode. He was placed back in bed where he improved spontaneously. The patient was transferred to the intensive care unit for close observation. When seen, he is on room air oxygen with a pulse of 69, blood pressure 130/59, saturation 95% on room air. A Code Earle was called in [facility]; however, the patient did not receive any medications or CPR. CBC/BMP: 03/17/17 0950 03/17/17 0950 Significant Findings Laboratory Tests Test 03/15/17 04:27 03/17/17 09:50 White Blood Count 3.9 TH/MM3 (4.0-11.0) 3.8 TH/MM3 (4.0-11.0) Red Blood Count 3.12 MIL/MM3 (4.50-5.90) 3.27 MIL/MM3 (4.50-5.90) Hemoglobin 9.6 GM/DL (13.0-17.0) 10.0 GM/DL (13.0-17.0) Hematocrit 29.2 % (39.0-51.0) 30.9 % (39.0-51.0) Eosinophils (%) (Auto) 4.4 % (0.0-4.0) 10.6 % (0.0-4.0) Blood Urea Nitrogen 19 MG/DL (7-18) Random Glucose 181 MG/DL (74-106) 259 MG/DL (74-106) Total Protein 6.0 GM/DL (6.4-8.2) Calcium Level 7.4 MG/DL (8.5-10.1) 8.1 MG/DL (8.5-10.1) Phosphorus Level 2.1 MG/DL (2.5-4.9) Protein Corrected Calcium 8.0 MG/DL (8.5-10.1) Red Cell Distribution Width 17.6 % (11.6-17.2) Platelet Count 134 TH/MM3 (150-450) Monocytes (%) (Auto) 12.6 % (0.0-8.0) Lymphocytes # (Auto) 0.9 TH/MM3 (1.0-4.8) Estimat Glomerular Filtration Rate 75 ML/MIN (>89) Imaging Last Impressions Head CT 03/13/17 Signed Impressions: Service Date/Time: Monday, March 13, 2017 11:31 - CONCLUSION: Moderate motion artifact, atrophy, negative for acute process.. Harish Emmanuel MD FACR Chest X-Ray 03/13/17 Signed Impressions: Service Date/Time: Monday, March 13, 2017 00:00 - CONCLUSION: Bibasilar parenchymal changes with elevation right hemidiaphragm otherwise negative. Harish Emmanuel MD FACR Carotid Artery Ultrasound 03/13/17 Signed Impressions: Service Date/Time: Monday, March 13, 2017 14:23 - CONCLUSION: Negative examination for a hemodynamically significant carotid stenosis. Board Certified Radiologist. This report was verified electronically. MD HERNANDEZ at Discharge General: Elderly male in no acute distress. Hard of hearing. Heart: Regular rate and rhythm. No murmur. Lungs: Clear to auscultation bilaterally. No wheezes, rales, or rhonchi. Breathing is nonlabored. Abdomen: Soft, nontender, nondistended. Extremities: No lower extremity edema. Psych: Alert and oriented. Hospital Course Patient was admitted to the ICU under the critical care service for further evaluation of syncope, bradycardia. The patient's symptoms improved. He was transferred to the medical/surgical floor under the hospitalist service. Telemetry showed occasional PVCs and rate in the 90s. Physical therapy evaluated the patient. Echocardiogram showed ejection fraction 50-55%. He was felt to be stable for discharge back to inpatient rehabilitation. Pt Condition on Discharge: Stable Discharge Disposition: Rehab Inpatient Discharge Time: > 30 minutes Discharge Instructions DIET: Follow Instructions for: Heart Healthy Diet, Diabetic Diet Activities you can perform: Regular-No Restrictions Follow up Referrals: PCP Follow-up - 2 Weeks Continued Medications: Albuterol 8.5 GM Inh (Proair Hfa 8.5 GM Inh) 90 Mcg/Act Aer 2 PUFF INH Q4-6H PRN for SHORTNESS OF BREATH for 1 Day, #1 INHALER 0 Refills 108 mcg/actuation Aspirin DR (Aspirin 81) 81 Mg Tabdr 81 MG PO DAILY for Stroke Prevention for 1 Day, TAB 0 Refills Atorvastatin (Lipitor) 10 Mg Tab 10 MG PO HS for 1 Day, TAB Clopidogrel (Clopidogrel) 75 Mg Tab 75 MG PO DAILY for Blood Clot Prevention for 1 Day, #30 TAB 0 Refills Docusate Sodium (Colace) 100 Mg Capsule 100 MG PO Q12HR PRN for CONSTIPATION for 1 Day Folic Acid (Folic Acid) 1 Mg Tablet 1 TAB PO DAILY, #1 Insulin Glargine Inj (Lantus Inj) 1,000 Unit/10 Ml Vial 20 UNITS SQ Q12HR for Blood Sugar Management for 1 Day, VIAL 0 Refills Levothyroxine (Synthroid) 25 Mcg Tab 25 MCG PO DAILY@0600 for Thyroid for 1 Day, #1 TAB 0 Refills Methotrexate (Methotrexate) 2.5 Mg Tab 12.5 MG PO WEDNESDAY for Inflammation for 1 Day, TAB 0 Refills Polyethylene Glycol 3350 Powder (Miralax Powder) 17 Gm Powd 17 GM PO DAILY for Constipation for 1 Day, #1 CAN 0 Refills Mix and dissolve one measuring cap-ful (17 grams) in water or juice. Sitagliptin (Januvia) 25 Mg Tab 25 MG PO DAILY for Blood Sugar Management for 1 Day, #30 TAB 0 Refills Discontinued Medications: Insulin Aspart Inj (Novolog Flexpen Inj) 300 Unit/3 Ml Pen 8 UNITS SQ TIDAC for Blood Sugar Management for 1 Day, #1 PEN 0 Refills Rafael Obando MD Mar 17, 2017 14:49
== END 2017-03-17 16:17 | DRG 312 ==
LOC: HIME 10:32 → N05A 03-15 14:20
PROVIDERS: ADMIT Family Medicine; ATTEND Family Medicine
DX: R55 Syncope and collapse (principal); E11.9 Type 2 diabetes mellitus without complications; M06.9 Rheumatoid arthritis, unspecified; I10 Essential (primary) hypertension; E03.9 Hypothyroidism, unspecified; E78.5 Hyperlipidemia, unspecified; I49.3 Ventricular premature depolarization; R53.1 Weakness; R05 Cough; R29.6 Repeated falls; I25.10 Atherosclerotic heart disease of native coronary artery without angina pectoris; Z95.1 Presence of aortocoronary bypass graft; Z87.891 Personal history of nicotine dependence; Z85.46 Personal history of malignant neoplasm of prostate; Z79.82 Long term (current) use of aspirin; Z79.02 Long term (current) use of antithrombotics/antiplatelets; Z79.4 Long term (current) use of insulin
CPT/HCPCS: 70450; 71010; 80048; 80053; 82550; 82948; 83735; 84100; 84155; 84443; 84484; 85025; 85610; 87641; 93005; 93306; 93880; 94640; 94664; J1644; J7030

== ENCOUNTER 2017-04-24 09:11 | Inpatient (IN) | payer MEDICARE, OTHER ==
[2017-04-24] VITALS (9 sets, daily range): BP systolic 97–159; BP diastolic 52–74; PULSE 62–72; RESP 13–22; TEMP 97.4–98; O2SAT 98–100
[~2017-04-24 09:11] MED LIST changes: +CLIN300C5 PO; -COLA100C5 PO; +DOCU100S PO; +FAMO20TA2 PO; +HUMALOG SQ; -HYDR-3801 PO; -IPRAAER INH; -ISOS20TA PO; -LANTUS2P SQ; +LEVEMIR SQ; -LOSA100T PO; -NOVOINJ3 SQ; +OXYC1TAB13 PO; -ROSU5 PO; -SITA25 PO; +VITA10002 PO; +ZOFR4TAB PO; -[UNRECOGNIZED DRUG - CODE] PO
[2017-04-24] MEDS ORDERED: MAGNESIUM HYDROXIDE SUSP 30 ML CUP PO PRN (10:00)
[2017-04-24] MEDS ORDERED: RESP: ALBUTEROL 2.5 MG/IPRATROPIUM 0.5 MG NEB (PRN) INH (10:00)
[2017-04-24] MEDS ORDERED: CHLORHEXIDINE GLUCONATE 2 % 1 PACK (2 CLOTHS) TOP PRN (10:00)
[2017-04-24] MEDS ORDERED: ACETAMINOPHEN 325 MG TAB PO PRN ×2 (10:00→11:30)
[2017-04-24] MEDS ORDERED: SENNOSIDES 8.6 MG TAB PO PRN (10:00)
[2017-04-24] MEDS ORDERED: MISCELLANEOUS NURSING INFORMATION XX SCH (10:00)
[2017-04-24] MEDS ORDERED: SODIUM CHLORIDE 0.9% FLUSH 10 ML FLUSH IV FLUSH PRN (10:00)
[2017-04-24] MEDS ORDERED: LACTULOSE SYRUP 20 GM/30 ML CUP PO PRN (10:00)
[2017-04-24] MEDS ORDERED: BISACODYL 10 MG SUPP RECTAL PRN (10:00)
--- NOTE | 2017-04-24 11:09 | PD.CONS ---
History of Present Illness Service Neurology Consult Requested By rehab md Reason for Consult stroke alert Primary Care Physician Unknown History of Present Illness 89-year-old male transferred from [facility] for rehab after having pacemaker placed a few days ago. pt had episode of hypotension and then became sleepy, rehab team felt he may have some facial weakness. stroke alert was called. cta brain/carotids nml. ct brain showed a possible subacute/old left frontal infarct. tx'd to icu. in the icu he appears back to his baseline. denies boland, focal weakness, dyspnea, vision loss. hx of syncope/frequent falls. some hx of underlying memory loss/mild dementia. pt not the best historian, hx taken from chart. Review of Systems Except as stated in HPI: all other systems reviewed are Neg Past Family Social History Allergies: Coded Allergies: No Known Drug Allergies (Verified Allergy, Unknown, 03/12/17) Past Medical History Coronary artery disease previous CABG Mild ischemic cardiomyopathy with EF 50% HTN COPD Symptomatic bradycardia, s/p pacemaker Diabetes Prostate CA Hearing loss Hypothyroidism TIA Past Surgical History Dual-lead Medtronic permanent pacemaker implantation CABG Cardiac stent x 5 Kyphoplasty Abdominal surgery Family History Father, emphysema Mother, cancer Social History quit smoking 40 years ago. He also reports history of heavy alcohol use but no longer drinks. Review of Systems All other ROS: ROS reviewed as documented in chart Past Family Social History Allergies: Coded Allergies: No Known Drug Allergies (Verified Allergy, Unknown, 03/12/17) Active Ordered Medications Current Medications Medications (Trade) Dose Ordered Sig/Fabien Route Start Time Stop Time Status Last Admin (NS Flush) 2 ml UNSCH PRN IV FLUSH 04/24/17 10:00 (NS Flush) 2 ml BID IV FLUSH 04/24/17 21:00 (Tylenol) 650 mg Q6H PRN PO 04/24/17 10:00 (Duoneb Neb) 1 ampule Q4HR NEB PRN INH 04/24/17 10:00 Miscellaneous Information 1 Q361D XX 04/24/17 10:00 (Chlorhexidine 2% Cloth) 3 pack Taper DAILY@04 TOP 04/25/17 04:00 04/21/18 03:59 (Chlorhexidine 2% Cloth) 3 pack UNSCH PRN TOP 04/24/17 10:00 (Francy-Colace) 1 tab BID PO 04/24/17 21:00 (Milk Of Magnesia Liq) 30 ml Q12H PRN PO 04/24/17 10:00 (Senokot) 17.2 mg Q12H PRN PO 04/24/17 10:00 (Dulcolax Supp) 10 mg DAILY PRN RECTAL 04/24/17 10:00 (Lactulose Liq) 30 ml DAILY PRN PO 04/24/17 10:00 Exam General: Alert and Oriented, No acute distress Respiratory: Lungs CTA, Non-labored respirations, BS equal, Symmetrical expansion, Other Cardiology: Normal rate, No murmur, Intact pulses, Regular Rhythm, Other Musculoskeletal: ROM, Swelling, No calf tenderness Neurologic: Alert, Oriented, Normal motor, CN II-XII intact, Normal DTR's Psychiatric: Cooperative, Appropriate mood & affect Exam Comments alerts, ox 2, not to date, repeats, names, follows, mild dysarthric speech, eomi , face sym, ou 3mm sluggish, humphrey to gravity, no clonus, planterflexor Review/Management Diagnosis/Plan: (1) Acute embolic stroke within last 8 weeks Status: Acute Plan: possible new/subacute infarct vs syncopal episode, ? watch for SIRS/ sepsis neuro improved with mild dysarthria- ?baseline, dehydration. not tpa candidate for minimal nihss, resolved symptoms, recent pacemaker insertion ct brain showing small infarct- unknown time. was noted to be confused on admission and at [facility]- may have had an infarct there pt with multiple cardiac morbidities recs eeg mri brain if feasible hydration watch for sirs/sepsis, recent pacemaker insertion p.t./s.t. echo may need to be placed on coumadin with hep gtt cardiology dewayne poole critical care MD and RN (2) H/O heart artery stent ICD Codes: Z95.5 - Presence of coronary angioplasty implant and graft Status: Chronic (3) Congestive heart failure ICD Codes: I50.9 - Heart failure, unspecified Status: Chronic (4) Dementia ICD Codes: F03.90 - Unspecified dementia without behavioral disturbance Status: Chronic (5) Syncope ICD Codes: R55 - Syncope and collapse Status: Acute (6) Frequent falls ICD Codes: R29.6 - Repeated falls Status: Acute (7) FH: CABG (coronary artery bypass surgery) ICD Codes: Z84.89 - Family history of other specified conditions Zackery Sin MD Apr 24, 2017 11:09
[2017-04-24] MEDS ORDERED: ASPIRIN EC 325 MG TABEC PO SCH (11:15)
[2017-04-24] MEDS ORDERED: CLOPIDOGREL 75 MG TAB PO SCH (11:15)
--- NOTE | 2017-04-24 11:24 | HHI.HP ---
HPI Service Critical Care Medicine Primary Care Physician Unknown Admission Diagnosis Diagnosis: Chief Complaint: Syncope, altered mental status Travel History International Travel<30 Days: No Contact w/Intl Traveler <30 Da: No Traveled to Known Affected Are: No History of Present Illness History of Present Illness This is an 89-year-old male with past medical history significant for coronary artery disease, previous CABG, HTN, COPD, syncopal episodes, history of frequent falls, symptomatic bradycardia and diabetes who was admitted to [facility] on 04/17/17 for altered mental status and increased confusion. Workup revealed white blood cell count of 5.7, hemoglobin 12.6 platelet 198,000 INR was 1.1 sodium 145 potassium 3.9 creatinine was 1.14 down from 1.38 glucose was 154. Troponin was 0.03 and then 0.02. UA was negative. Chest x-ray stable EKG revealed supraventricular arrhythmia with rate of 58 bpm with possible first-degree AV block. Head CT was negative for acute abnormality. Carotid Dopplers in April 2016 showed 50% stenosis of the internal carotid echo in February 2017 showed EF 50-55% with moderate LVH. Patient was seen in consultation by Dr. Juarez of cardiology and diagnosed with second degree AV block and underwent a dual lead permanent Medtronic pacemaker placement on 04/18/17. Patient was admitted to [facility] for inpatient rehabilitation on 04/19/17. Hospitalist services consulted for medical management. Patient seen and examined. Patient denies any complaints at this time except for some mild chest tenderness around the pacemaker insertion site. Denies any fever or chills. Denies any shortness of breath. Denies any nausea, vomiting or abdominal pain. Prior to his admission, patient was living at home with his son. Patient was doing well on [facility]. He developed altered mental status with poor responsiveness slurred speech and right facial droop this morning around 8 AM. A stroke alert was called at the time. His finger stick glucose was 114 at the time. He had been sitting on the bed in a chair at the time of the event. Patient was taken for head CT which was negative for bleed however showed subacute to chronic left frontal parietal infarct and old right occipital CVA. Dr. Terry from [facility] contacted me to admit patient to the ICU. Patient was accepted for admission by critical care medicine service and I evaluated the patient immediately following his arrival to the ICU. At the time of my evaluation patient was completely awake alert and oriented, following commands moving all 4 extremities and did not have any facial droop. He appeared to be back to his baseline. He reportedly had a systolic blood pressure in the 80s documented on rehabilitation to transfer however his blood pressure normalized prior to arrival to the ICU. Patient denied any chest pain or shortness of breath. Review of Systems Except as stated in HPI: as per HPI Past Family Social History Allergies: Coded Allergies: No Known Drug Allergies (Verified Allergy, Unknown, 03/12/17) Past Medical History Coronary artery disease previous CABG Mild ischemic cardiomyopathy with EF 50% HTN COPD Symptomatic bradycardia Diabetes Prostate CA Hearing loss Hypothyroidism TIA Past Surgical History Dual-lead Medtronic permanent pacemaker implantation 04/18/17 CABG Cardiac stent x 5 Kyphoplasty Abdominal surgery Reported Medications Clindamycin 300mg po TID Methotrexate 10mg po q7days Albuterol Plavix 75mg daily Lipitor 10mg daily Norvasc 5mg daily ASA 81mg daily Oxycodone 5mg po q6h Docusate 200mg po BID Miralax 17gm daily Pepcid 20mg po BID Levemir 7 units sq hs Humalog 2-7 units sq achs Levothyroxine 25mcg po daily Vitamin B12 1000mcg po daily Folic acid 1mg po daily Physical Exam Physical Exam HEENT/Neuro: No pallor or icterus, tongue moist, DEDE, Awake alert oriented 3 , nonfocal grossly, moving all 4 extremities Neck: No JVD Chest/pulmonary: CTA bilaterally. Dressing over pacemaker insertion site in place Cardiovascular: S1-S2 regular no gallop or murmur GI/abdomen: Soft, nontender, bowel sounds present Extremities: Warm bilaterally, no edema Laboratory Review from [facility] this morning. CBC and BMP, coags unremarkable. Imaging 2/3: Head CT without contrast with left frontoparietal subacute to chronic infarct, old right occipital infarct. 2/3: CTA brain: Essentially normal Caprini VTE Risk Assessment Caprini VTE Risk Assessment: Mod/High Risk (score >= 2) Caprini Risk Assessment Model Point Value = 1 Point Value = 2 Point Value = 3 Point Value = 5 Age 41-60 Minor surgery BMI > 25 kg/m2 Swollen legs Varicose veins or History of unexplained or recurrent spontaneous Oral contraceptives or hormone replacement Sepsis (< 1 month) Serious lung disease, including pneumonia (< 1 month) Abnormal pulmonary function Acute myocardial infarction Congestive heart failure (< 1 month) History of inflammatory bowel disease Medical patient at bed rest Age 61-74 Arthroscopic surgery Major open surgery (> 45 min) Laparoscopic surgery (> 45 min) Malignancy Confined to bed (> 72 hours) Immobilizing plaster cast Central venous access Age >= 75 History of VTE Family history of VTE Factor V Leiden Prothrombin [id number] Lupus anticoagulant Anticardiolipin antibodies Elevated serum homocysteine Heparin-induced thrombocytopenia Other congenital or acquired thrombophilia Stroke (< 1 month) Elective arthroplasty Hip, pelvis, or leg fracture Acute spinal cord injury (< 1 month) Prophylaxis Regimen Total Risk Factor Score Risk Level Prophylaxis Regimen 0-1 Low Early ambulation 2 Moderate Order ONE of the following: *Sequential Compression Device (SCD) *Heparin 5000 units SQ BID 3-4 Higher Order ONE of the following medications: *Heparin 5000 units SQ TID *Enoxaparin/Lovenox 40 mg SQ daily (WT < 150 kg, CrCl > 30 mL/min) *Enoxaparin/Lovenox 30 mg SQ daily (WT < 150 kg, CrCl > 10-29 mL/min) *Enoxaparin/Lovenox 30 mg SQ BID (WT < 150 kg, CrCl > 30 mL/min) AND/OR *Sequential Compression Device (SCD) 5 or more Highest Order ONE of the following medications: *Heparin 5000 units SQ TID (Preferred with Epidurals) *Enoxaparin/Lovenox 40 mg SQ daily (WT < 150 kg, CrCl > 30 mL/min) *Enoxaparin/Lovenox 30 mg SQ daily (WT < 150 kg, CrCl > 10-29 mL/min) *Enoxaparin/Lovenox 30 mg SQ BID (WT < 150 kg, CrCl > 30 mL/min) AND *Sequential Compression Device (SCD) Assessment and Plan Assessment and Plan Syncope/ altered mental status Questionable right facial weakness which is now resolved. ? TIA versus hypoperfusion secondary to low blood pressure. Hypotension which is now resolved Coronary artery disease previous CABG Mild ischemic cardiomyopathy with EF 50% HTN COPD Symptomatic bradycardia Diabetes Prostate CA Hearing loss Hypothyroidism TIA Plan: Neuro: Continue neuro checks. Patient has been evaluated by neurology. At this time the neuro exam is back to baseline per discussion with Dr. Sin. Continue aspirin and Plavix. In view of findings of subacute infarct on head CT. Patient ideally would need MRI brain which we are trying to clarify if his pacer is MRI compatible. If patient is MRI compatible to proceed with MRI brain for further evaluation. Also since patient is on aspirin and Plavix with evidence of subacute infarct may require full anticoagulation though has just had a pacer inserted on April 18, 2017 at [facility]. Will get cardiology evaluation to follow-up for pacer insertion site and to clear for full anticoagulation. Patient may not be a good candidate for full anticoagulation view of frequent falls previously. On clindamycin possibly for pacer insertion site. Will clarify with cardiology this needs to be continued. Consult cardiology for further evaluation of syncope as well as evaluate pacer and here for full anticoagulation. Continue all previous medications including aspirin and Plavix. Continue Levemir Need to clarify reason for methotrexate Await cardiology eval to clear for Lovenox for DVT prophylaxis in view of recent pacer insertion. Patient can be transferred out of ICU per discussion with Dr. Elias. We'll consult hospitalist service for further medical management and transfer out of ICU later today. Consult palliative care to assist with deciding goals of therapy in this 89-year -old with multiple chronic medical problems and evidence of recurrent strokes to decide long-term goals of therapy. Discussed with Dr. Terry from [facility], discussed with neurology Dr. Sin, discussed with MACHINE BILLER. Henri Meyers MD Apr 24, 2017 11:24
[2017-04-24] MEDS ORDERED: ALBUTEROL SULFATE 90 MCG/ACT HFA 8 GM INHALER INH PRN (11:30)
[2017-04-24] MEDS ORDERED: DEXTROSE 50% IN WATER 50 ML VIAL(D50) IV PRN (11:45)
[2017-04-24] MEDS ORDERED: GLUCAGON 1 MG/ML VIAL IM/SQ PRN (11:45)
[2017-04-24] MEDS: INSULIN ASPART SUPPLEMENTAL SCALE SQ SCH ×3 (12:00→21:00)
[2017-04-24] MEDS ORDERED: ONDANSETRON ODT 4 MG TAB PO PRN (12:15)
[2017-04-24] MEDS: CLOPIDOGREL 75 MG TAB PO SCH (12:39)
[2017-04-24] MEDS: ENOXAPARIN SODIUM 40 MG/0.4 ML SYRINGE SQ SCH (12:40)
[2017-04-24] MEDS: ASPIRIN EC 81 MG TABEC PO SCH (12:40)
[2017-04-24] MEDS: CLINDAMYCIN 150 MG CAP PO SCH ×2 (12:53→17:25)
[2017-04-24] MEDS ORDERED: METHOTREXATE 2.5 MG TAB PO SCH (13:00)
[2017-04-24 13:14] LABS: CHOLESTEROL/ HDL RATIO 2.35 RATIO; HDL CHOLESTEROL 53.1 MG/DL (40.0-60.0)
--- NOTE | 2017-04-24 15:59 | MB ---
cc: QIAN GREENE MD DATE OF CONSULTATION: 04/24/2017. REASON FOR CONSULTATION: Possible syncope / CVA. HISTORY OF PRESENT ILLNESS: The patient is a pleasant 89-year-old gentleman with a complicated past medical history including coronary disease with a CABG and multiple stents as well as a recent Medtronic pacemaker placed last week at [facility]. He was at the [facility] when there was some question of a facial droop and/or possible brief change in mental status or loss of consciousness. The history is somewhat vague given the patient's poor baseline functionality. He was brought to the ICU where apparently he was then asymptomatic. After interviewing the patient, I find him to be pleasant but quite somnolent and he has a very poor time answering questions, some of this is due to his poor hearing but overall he appears nontoxic. He does say he has had some chest and jaw burning for the last three days. Otherwise the patient is denying any symptoms. PAST MEDICAL HISTORY: 1. Coronary artery disease status post CABG and multiple stents. 2. Recent Medtronic pacemaker. 3. TIA. 4. Hypothyroidism. 5. Diabetes. 6. Hypertension. (During this dictation the electronic medical record system has crashed and is currently unavailable for the remainder of this dictation). HOME MEDICATIONS: Home medications from the patient's son's list include: 1. Aspirin. 2. Plavix. CT scan per Dr. Meyers showed subacute infarct. EKG has not been performed but telemetry shows a paced rhythm. PHYSICAL EXAMINATION: VITAL SIGNS: Stable. GENERAL: A pleasant elderly gentleman who is very hard of hearing and in no distress. NECK: No jugular venous distention. LUNGS: Clear to auscultation but with poor inspiratory effort. CARDIOVASCULAR: Regular rate and rhythm. No murmurs appreciated. ABDOMEN: Benign. EXTREMITIES: No edema. LABORATORY DATA: Currently unavailable due to the electronic medical record being. down. IMPRESSION: 1. Possible syncope. The patient's story seems more consistent with a transient change in mental status possibly due to low blood pressure status post recent syncopal episode. I will have his pacemaker interrogated to ensure that it is functioning properly. 2. CVA. The patient has what seems to be a subacute infarct on his CT scan. Due to the recent pacemaker implantation, it is advised that he hold off for six weeks before and MRI is performed. He is on aspirin and Plavix. Whether or not he should be on Coumadin I will defer to the neurology team but given his very fragile state and the likely significant fall risk, I would be quite cautious. Furthermore, his cardiac history is not entirely clear. Given the majority of his work was done at [place] and it is possible that long-term Plavix would be advisable. I certainly would not recommend triple therapy in a patient such as this. Further recommendations will be based on his clinical course as well as a pacemaker interrogation. Thank you again for the opportunity to participate in this patient's care. MD PRAVEEN Spaulding/SANTOSH /1:49 PM /3:34 PM
[2017-04-24] MEDS: RESP: ALBUTEROL 2.5 MG/IPRATROPIUM 0.5 MG NEB (SCH) INH ×2 (16:23→20:53)
[2017-04-24] MEDS: FAMOTIDINE 20 MG TAB PO SCH (21:15)
[2017-04-24] MEDS: ATORVASTATIN 10 MG TAB PO SCH (21:15)
[2017-04-24] MEDS: INSULIN DETEMIR 100 UNITS/ML VIAL SQ SCH (21:15)
[2017-04-24] MEDS: DOCUSATE SODIUM 50 MG/SENNA 8.6 MG TAB PO SCH (21:15)
[2017-04-24] MEDS: SODIUM CHLORIDE 0.9% FLUSH 10 ML FLUSH IV FLUSH SCH (21:16)
[2017-04-25] VITALS (10 sets, daily range): BP systolic 132–173; BP diastolic 63–78; PULSE 60–74; RESP 14–22; TEMP 97.7–98.5; O2SAT 94–98
[2017-04-25] MEDS: CHLORHEXIDINE GLUCONATE 2 % 1 PACK (2 CLOTHS) TOP SCH (04:00)
[2017-04-25] MEDS: RESP: ALBUTEROL 2.5 MG/IPRATROPIUM 0.5 MG NEB (SCH) INH ×4 (04:09→21:07)
[2017-04-25 05:01] LABS: AUTOMATED NEUTROPHIL # 3.2 TH/MM3 (1.8-7.7); BASOPHIL % 0.5 % (0.0-2.0); EOSINOPHIL # 0.6 TH/MM3 (0-0.4); EOSINOPHIL % 11.1 % (0.0-4.0); HEMATOCRIT 34.7 % (39.0-51.0); HEMOGLOBIN 11.7 GM/DL (13.0-17.0); LYMPH % 20.6 % (9.0-44.0); LYMPHOCYTE # 1.1 TH/MM3 (1.0-4.8); MEAN CELL VOLUME 91.9 FL (80.0-100.0); MEAN CORPUSCULAR HEMOGLOBIN 31.1 PG (27.0-34.0); MEAN CORPUSCULAR HGB CONC 33.8 % (32.0-36.0); MEAN PLATELET VOLUME 7.8 FL (7.0-11.0); MONO % 10.3 % (0.0-8.0); MONOCYTE # 0.6 TH/MM3 (0-0.9); NEUT % 57.5 % (16.0-70.0); PLATELET COUNT 223 TH/MM3 (150-450); RED BLOOD COUNT 3.77 MIL/MM3 (4.50-5.90); RED CELL DISTRIBUTION WIDTH 16.2 % (11.6-17.2); WHITE BLOOD COUNT 5.5 TH/MM3 (4.0-11.0)
[2017-04-25 05:31] LABS: ALBUMIN 2.5 GM/DL (3.4-5.0); ALT (GPT) 16 U/L (12-78); AST (GOT) 21 U/L (15-37); BLOOD UREA NITROGEN 17 MG/DL (7-18); CALCIUM 8.3 MG/DL (8.5-10.1); CHLORIDE 101 MEQ/L (98-107); CREATININE 0.92 MG/DL (0.60-1.30); GLOMERULAR FILTRATION RATE 77 ML/MIN (>89); GLUCOSE,RANDOM 105 MG/DL (74-106); SODIUM (NA) 139 MEQ/L (136-145)
[2017-04-25 05:32] LABS: ALKALINE PHOSPHATASE 88 U/L (45-117); TOTAL BILIRUBIN ADULT 0.5 MG/DL (0.2-1.0); TOTAL PROTEIN 6.8 GM/DL (6.4-8.2)
[2017-04-25] MEDS: INSULIN ASPART SUPPLEMENTAL SCALE SQ SCH ×4 (05:43→21:02)
[2017-04-25] MEDS: LEVOTHYROXINE SODIUM 25 MCG TAB PO SCH (05:43)
[2017-04-25] MEDS: DOCUSATE SODIUM 50 MG/SENNA 8.6 MG TAB PO SCH ×2 (09:00→20:59)
[2017-04-25] MEDS: SODIUM CHLORIDE 0.9% FLUSH 10 ML FLUSH IV FLUSH SCH ×2 (09:00→21:01)
[2017-04-25] MEDS: ASPIRIN EC 81 MG TABEC PO SCH (09:13)
[2017-04-25] MEDS: FOLIC ACID 1 MG TAB PO SCH (09:13)
[2017-04-25] MEDS: CLOPIDOGREL 75 MG TAB PO SCH (09:13)
[2017-04-25] MEDS: amLODIPine BESYLATE 5 MG TAB PO SCH (09:14)
[2017-04-25] MEDS: FAMOTIDINE 20 MG TAB PO SCH ×2 (09:14→21:00)
[2017-04-25] MEDS: CLINDAMYCIN 150 MG CAP PO SCH ×3 (09:15→16:59)
[2017-04-25] MEDS: CYANOCOBALAMIN 1,000 MCG TAB PO SCH (09:15)
[2017-04-25] MEDS: POLYETHYLENE GLYCOL 17 GM PKG PO SCH (09:16)
--- NOTE | 2017-04-25 11:04 | HHI.PR ---
Subjective Remarks Patient resting in bed awake alert He complained of sore throat Unable to do MRI due to pacemaker newly inserted need 6 weeks apart Objective Vitals Vital Signs Date Time Temp Pulse Resp B/P (MAP) Pulse Ox O2 Delivery O2 Flow Rate FiO2 04/25/17 10:00 72 04/25/17 09:15 95 Nasal Cannula 2.00 04/25/17 08:00 62 04/25/17 07:00 96 Nasal Cannula 2.00 04/25/17 06:00 60 04/25/17 04:00 67 04/25/17 04:00 98.4 67 22 173/77 (109) 97 04/25/17 02:00 63 04/25/17 00:00 97.7 69 20 153/78 (103) 97 04/25/17 00:00 69 04/24/17 22:00 64 04/24/17 20:55 100 Nasal Cannula 2.00 04/24/17 20:00 97.4 63 22 159/74 (102) 98 04/24/17 20:00 72 04/24/17 20:00 98 Nasal Cannula 2.00 04/24/17 18:00 71 04/24/17 16:27 100 Nasal Cannula 2.00 04/24/17 16:00 63 04/24/17 16:00 97.8 63 13 135/60 (85) 100 04/24/17 14:00 62 04/24/17 12:00 98.0 63 18 97/52 (67) 100 04/24/17 12:00 63 I/O 04/24/17 04/24/17 04/24/17 04/25/17 04/25/17 04/25/17 07:00 15:00 23:00 07:00 15:00 23:00 Intake Total 660 ml 360 ml Output Total 375 ml 500 ml Balance 285 ml -140 ml Intake Oral 660 ml 360 ml Output Urine Total 375 ml 500 ml # Bowel Movements 0 0 Result Diagram: 04/25/1739904/25/17399 Objective Remarks GENERAL: This is a well-nourished, well-developed patient, in no apparent distress. SKIN: No rashes, warm and dry HEAD: Atraumatic. Normocephalic. EYES: Pupils equal round and reactive. Extraocular motions intact. No scleral icterus. ENT: Nose without bleeding, or drainage, Airway patent. NECK: Trachea midline. Supple CARDIOVASCULAR: Regular rate and rhythm without murmurs, gallops, or rubs. RESPIRATORY: Fair air entry bilaterally. No wheezes, rales, or rhonchi. GASTROINTESTINAL: Abdomen soft, non-tender, nondistended. Positive bowel sounds MUSCULOSKELETAL: Extremities without clubbing, cyanosis, or edema. Pedal pulses appreciated NEUROLOGICAL: Awake and alert. Moves all extremity. Normal speech.no focal neurological deficit A/P Assessment and Plan A/P: Syncope/ altered mental status Questionable right facial weakness which is now resolved. ? TIA versus hypoperfusion secondary to low blood pressure. Hypotension which is now resolved Coronary artery disease previous CABG Mild ischemic cardiomyopathy with EF 50% HTN COPD Symptomatic bradycardia Diabetes Prostate CA Hearing loss Hypothyroidism TIA Plan: Continue neuro checks. Neurology Dr. Sin consulted. Continue aspirin and Plavix. Unable to do MRI despite compatibility, need 6 weeks after pacemaker insertion. patient is on aspirin and Plavix with evidence of subacute infarct may require full anticoagulation though has just had a pacer inserted on April 18, 2017 at [facility]. Appreciate cardiology consultation they are not in favor of full anticoagulation. On clindamycin possibly for pacer insertion site. Continue all previous medications including aspirin and Plavix. Continue Levemir Need to clarify reason for methotrexate Sore throat we'll give lozenge Consult palliative care to assist with deciding goals of therapy in this 89-year -old with multiple chronic medical problems and evidence of recurrent strokes to decide long-term goals of therapy. Ernestina Calix MD Apr 25, 2017 11:04
--- NOTE | 2017-04-25 11:12 | PD.CARD.PN ---
Subjective Subjective Remarks Pt w/o complaints. Objective Medications Current Medications Medications (Trade) Dose Ordered Sig/Fabien Route Start Time Stop Time Status Last Admin (NS Flush) 2 ml UNSCH PRN IV FLUSH 04/24/17 10:00 (NS Flush) 2 ml BID IV FLUSH 04/24/17 21:00 04/25/17 09:00 (Tylenol) 650 mg Q6H PRN PO 04/24/17 10:00 (Duoneb Neb) 1 ampule Q4HR NEB PRN INH 04/24/17 10:00 Miscellaneous Information 1 Q361D XX 04/24/17 10:00 (Chlorhexidine 2% Cloth) 3 pack Taper DAILY@04 TOP 04/25/17 04:00 04/21/18 03:59 (Chlorhexidine 2% Cloth) 3 pack UNSCH PRN TOP 04/24/17 10:00 (Francy-Colace) 1 tab BID PO 04/24/17 21:00 04/25/17 09:00 (Milk Of Magnesia Liq) 30 ml Q12H PRN PO 04/24/17 10:00 (Senokot) 17.2 mg Q12H PRN PO 04/24/17 10:00 (Dulcolax Supp) 10 mg DAILY PRN RECTAL 04/24/17 10:00 (Lactulose Liq) 30 ml DAILY PRN PO 04/24/17 10:00 (Lovenox Inj) 40 mg Q24H SQ 04/24/17 12:00 04/24/17 12:40 (Tylenol) 650 mg Q4H PRN PO 04/24/17 11:30 (Proair Hfa Inh) 2 puff Q4HR PRN INH 04/24/17 11:30 (Norvasc) 5 mg DAILY PO 04/25/17 09:00 04/25/17 09:14 (Ecotrin Ec) 81 mg DAILY PO 04/24/17 11:30 04/25/17 09:13 (Lipitor) 10 mg HS PO 04/24/17 21:00 04/24/17 21:15 (Cleocin) 300 mg TID PO 04/24/17 13:00 04/25/17 09:15 (Plavix) 75 mg DAILY PO 04/24/17 11:30 2/4/18 09:13 (Vitamin B12) 1,000 mcg DAILY PO 04/25/17 09:00 04/25/17 09:15 (Pepcid) 20 mg BID PO 04/24/17 21:00 04/25/17 09:14 (Folate) 1 mg DAILY PO 04/25/17 09:00 04/25/17 09:13 (Levemir Inj) 7 units HS SQ 04/24/17 21:00 04/24/17 21:15 (Duoneb Neb) 1 ampule Q6HR NEB INH 04/24/17 16:00 04/25/17 09:14 (Synthroid) 25 mcg DAILY@0600 PO 04/25/17 06:00 04/25/17 05:43 (Rheumatrex) 10 mg Q7D PO 04/24/17 13:00 04/24/17 12:54 (Miralax) 17 gm DAILY PO 04/25/17 09:00 04/25/17 09:16 (Zofran Odt) 4 mg Q4H PRN PO 04/24/17 12:15 (NovoLOG SUPPLEMENTAL SCALE) 1 ACHS SQ 04/24/17 12:00 04/24/17 21:00 (D50w (Vial) Inj) 25 ml UNSCH PRN IV 04/24/17 11:45 (Glucagon Inj) 1 mg UNSCH PRN IM/SQ 04/24/17 11:45 Vital Signs / I&O Vital Signs Date Time Temp Pulse Resp B/P (MAP) Pulse Ox O2 Delivery O2 Flow Rate FiO2 04/25/17 10:00 72 04/25/17 09:15 95 Nasal Cannula 2.00 04/25/17 08:00 62 04/25/17 08:00 98.4 62 14 132/63 (86) 96 04/25/17 07:00 96 Nasal Cannula 2.00 04/25/17 06:00 60 04/25/17 04:00 67 04/25/17 04:00 98.4 67 22 173/77 (109) 97 04/25/17 02:00 63 04/25/17 00:00 97.7 69 20 153/78 (103) 97 04/25/17 00:00 69 04/24/17 22:00 64 04/24/17 20:55 100 Nasal Cannula 2.00 04/24/17 20:00 97.4 63 22 159/74 (102) 98 04/24/17 20:00 72 04/24/17 20:00 98 Nasal Cannula 2.00 04/24/17 18:00 71 04/24/17 16:27 100 Nasal Cannula 2.00 04/24/17 16:00 63 04/24/17 16:00 97.8 63 13 135/60 (85) 100 04/24/17 14:00 62 04/24/17 12:00 98.0 63 18 97/52 (67) 100 04/24/17 12:00 63 I/O 04/24/17 04/24/17 04/24/17 04/25/17 04/25/17 04/25/17 07:00 15:00 23:00 07:00 15:00 23:00 Intake Total 660 ml 360 ml Output Total 375 ml 500 ml Balance 285 ml -140 ml Intake Oral 660 ml 360 ml Output Urine Total 375 ml 500 ml # Bowel Movements 0 0 Physical Exam GENERAL: This is a well-nourished, well-developed patient, in no apparent distress. CARDIOVASCULAR: Regular rate and rhythm without murmurs, gallops, or rubs. RESPIRATORY: Clear to auscultation. Breath sounds equal bilaterally. No wheezes , rales, or rhonchi. GASTROINTESTINAL: Abdomen soft, non-tender, nondistended. Normal active bowel sounds MUSCULOSKELETAL: Extremities without clubbing, cyanosis, or edema. NEURO: Alert & Oriented x4 to person, place, time, situation. Moves all ext x4 Laboratory Laboratory Tests Test 04/25/17 04:00 White Blood Count 5.5 TH/MM3 Red Blood Count 3.77 MIL/MM3 Hemoglobin 11.7 GM/DL Hematocrit 34.7 % Mean Corpuscular Volume 91.9 FL Mean Corpuscular Hemoglobin 31.1 PG Mean Corpuscular Hemoglobin Concent 33.8 % Red Cell Distribution Width 16.2 % Platelet Count 223 TH/MM3 Mean Platelet Volume 7.8 FL Neutrophils (%) (Auto) 57.5 % Lymphocytes (%) (Auto) 20.6 % Monocytes (%) (Auto) 10.3 % Eosinophils (%) (Auto) 11.1 % Basophils (%) (Auto) 0.5 % Neutrophils # (Auto) 3.2 TH/MM3 Lymphocytes # (Auto) 1.1 TH/MM3 Monocytes # (Auto) 0.6 TH/MM3 Eosinophils # (Auto) 0.6 TH/MM3 Basophils # (Auto) 0.0 TH/MM3 CBC Comment DIFF FINAL Differential Comment Blood Urea Nitrogen 17 MG/DL Creatinine 0.92 MG/DL Random Glucose 105 MG/DL Total Protein 6.8 GM/DL Albumin 2.5 GM/DL Calcium Level 8.3 MG/DL Alkaline Phosphatase 88 U/L Aspartate Amino Transf (AST/SGOT) 21 U/L Alanine Aminotransferase (ALT/SGPT) 16 U/L Total Bilirubin 0.5 MG/DL Sodium Level 139 MEQ/L Potassium Level 3.8 MEQ/L Chloride Level 101 MEQ/L Carbon Dioxide Level 33.0 MEQ/L Anion Gap 5 MEQ/L Estimat Glomerular Filtration Rate 77 ML/MIN Assessment and Plan Problem List: (1) Acute embolic stroke within last 8 weeks Status: Acute Plan: Pacemaker interrogation shows 2 very brief episodes of afib, < 30 seconds , though the device is very new so certainly could have a more substantial burden. Given CVA, I think it is reasonable to change plavix/asa to full anticoagulatin with eliquis/warfarin etc but will defer timing to neurology given possible acute aspect of the cva. With his weight and Cr., he would still qualify for full dose eliquis at 5mg bid despite his advanced age. (2) Dementia ICD Codes: F03.90 - Unspecified dementia without behavioral disturbance Status: Chronic Assessment and Plan Will be available as needed and would be happy to see in my office, pls call with questions. Tung Egan MD Apr 25, 2017 11:12
--- NOTE | 2017-04-25 12:01 | HHI.PR ---
Objective Vitals Vital Signs Date Time Temp Pulse Resp B/P (MAP) Pulse Ox O2 Delivery O2 Flow Rate FiO2 04/25/17 10:00 72 04/25/17 09:15 95 Nasal Cannula 2.00 04/25/17 08:00 62 04/25/17 08:00 98.4 62 14 132/63 (86) 96 04/25/17 07:00 96 Nasal Cannula 2.00 04/25/17 06:00 60 04/25/17 04:00 67 04/25/17 04:00 98.4 67 22 173/77 (109) 97 04/25/17 02:00 63 04/25/17 00:00 97.7 69 20 153/78 (103) 97 04/25/17 00:00 69 04/24/17 22:00 64 04/24/17 20:55 100 Nasal Cannula 2.00 04/24/17 20:00 97.4 63 22 159/74 (102) 98 04/24/17 20:00 72 04/24/17 20:00 98 Nasal Cannula 2.00 04/24/17 18:00 71 04/24/17 16:27 100 Nasal Cannula 2.00 04/24/17 16:00 63 04/24/17 16:00 97.8 63 13 135/60 (85) 100 04/24/17 14:00 62 I/O 04/24/17 04/24/17 04/24/17 04/25/17 04/25/17 04/25/17 07:00 15:00 23:00 07:00 15:00 23:00 Intake Total 660 ml 360 ml Output Total 375 ml 500 ml Balance 285 ml -140 ml Intake Oral 660 ml 360 ml Output Urine Total 375 ml 500 ml # Bowel Movements 0 0 Result Diagram: 04/25/17 0400 04/25/17 0400 Objective Remarks GENERAL: This is a well-nourished, well-developed patient, in no apparent distress. SKIN: No rashes, warm and dry HEAD: Atraumatic. Normocephalic. EYES: Pupils equal round and reactive. Extraocular motions intact. No scleral icterus. ENT: Nose without bleeding, or drainage, Airway patent. NECK: Trachea midline. Supple CARDIOVASCULAR: Regular rate and rhythm without murmurs, gallops, or rubs. RESPIRATORY: Fair air entry bilaterally. No wheezes, rales, or rhonchi. GASTROINTESTINAL: Abdomen soft, non-tender, nondistended. Positive bowel sounds MUSCULOSKELETAL: Extremities without clubbing, cyanosis, or edema. Pedal pulses appreciated NEUROLOGICAL: Awake and alert. Moves all extremity. Normal speech.no focal neurological deficit A/P Assessment and Plan Syncope/ altered mental status Questionable right facial weakness which is now resolved. ? TIA versus hypoperfusion secondary to low blood pressure. Hypotension which is now resolved Coronary artery disease previous CABG Mild ischemic cardiomyopathy with EF 50% HTN COPD Symptomatic bradycardia Diabetes Prostate CA Hearing loss Hypothyroidism TIA Plan: Continue neuro checks. Urology Dr. Sin consulted. Continue aspirin and Plavix. Unable to do MRI despite compatibility, need 6 weeks after pacemaker insertion. patient is on aspirin and Plavix with evidence of subacute infarct may require full anticoagulation though has just had a pacer inserted on April 18, 2017 at [facility]. She cardiology consultation not in favor of full anticoagulation. On clindamycin possibly for pacer insertion site. Continue all previous medications including aspirin and Plavix. Continue Levemir Need to clarify reason for methotrexate Await cardiology eval to clear for Lovenox for DVT prophylaxis in view of recent pacer insertion. Patient can be transferred out of ICU per discussion with Dr. Elias. We'll consult hospitalist service for further medical management and transfer out of ICU later today. Consult palliative care to assist with deciding goals of therapy in this 89-year -old with multiple chronic medical problems and evidence of recurrent strokes to decide long-term goals of therapy. Ernestina Calix MD Apr 25, 2017 12:01
[2017-04-25] MEDS: ENOXAPARIN SODIUM 40 MG/0.4 ML SYRINGE SQ SCH (12:22)
[2017-04-25] MEDS ORDERED: MENTHOL LOZENGE BUCCAL PRN (13:15)
--- NOTE | 2017-04-25 13:18 | HHI.PR ---
Review/Management Diagnosis/Plan: (1) Acute embolic stroke within last 8 weeks Status: Acute Plan: possible new/subacute infarct vs syncopal episode, ? watch for SIRS/ sepsis neuro improved with mild dysarthria- ?baseline, dehydration. not tpa candidate for minimal nihss, resolved symptoms, recent pacemaker insertion ct brain showing small infarct- unknown time. was noted to be confused on admission and at [facility]- may have had an infarct there pt with multiple cardiac morbidities recs afib noted on pacemaker; cardiology suggests OAC can start low dose eliquis 2.5 bid x 1 weeks, then full dose. s/b d/w pt. agrees with tx. understands no reversal agent, bleeding risk p.t. [facility] (2) H/O heart artery stent ICD Codes: Z95.5 - Presence of coronary angioplasty implant and graft Status: Chronic (3) Congestive heart failure ICD Codes: I50.9 - Heart failure, unspecified Status: Chronic (4) Dementia ICD Codes: F03.90 - Unspecified dementia without behavioral disturbance Status: Chronic (5) Syncope ICD Codes: R55 - Syncope and collapse Status: Acute (6) Frequent falls ICD Codes: R29.6 - Repeated falls Status: Acute (7) FH: CABG (coronary artery bypass surgery) ICD Codes: Z84.89 - Family history of other specified conditions Subjective Subjective Comments No acute events reported No headache No chest pain No dyspnea Active Medications Current Medications Medications (Trade) Dose Ordered Sig/Fabien Route Start Time Stop Time Status Last Admin (NS Flush) 2 ml UNSCH PRN IV FLUSH 04/24/17 10:00 (NS Flush) 2 ml BID IV FLUSH 04/24/17 21:00 04/25/17 09:00 (Tylenol) 650 mg Q6H PRN PO 04/24/17 10:00 (Duoneb Neb) 1 ampule Q4HR NEB PRN INH 04/24/17 10:00 Miscellaneous Information 1 Q361D XX 04/24/17 10:00 (Chlorhexidine 2% Cloth) 3 pack Taper DAILY@04 TOP 04/25/17 04:00 04/21/18 03:59 (Chlorhexidine 2% Cloth) 3 pack UNSCH PRN TOP 04/24/17 10:00 (Francy-Colace) 1 tab BID PO 04/24/17 21:00 2/4/18 09:00 (Milk Of Magnesia Liq) 30 ml Q12H PRN PO 04/24/17 10:00 (Senokot) 17.2 mg Q12H PRN PO 04/24/17 10:00 (Dulcolax Supp) 10 mg DAILY PRN RECTAL 04/24/17 10:00 (Lactulose Liq) 30 ml DAILY PRN PO 04/24/17 10:00 (Lovenox Inj) 40 mg Q24H SQ 04/24/17 12:00 04/25/17 12:22 (Tylenol) 650 mg Q4H PRN PO 04/24/17 11:30 (Proair Hfa Inh) 2 puff Q4HR PRN INH 04/24/17 11:30 (Norvasc) 5 mg DAILY PO 04/25/17 09:00 04/25/17 09:14 (Ecotrin Ec) 81 mg DAILY PO 04/24/17 11:30 04/25/17 09:13 (Lipitor) 10 mg HS PO 04/24/17 21:00 04/24/17 21:15 (Cleocin) 300 mg TID PO 04/24/17 13:00 04/25/17 12:22 (Plavix) 75 mg DAILY PO 04/24/17 11:30 04/25/17 09:13 (Vitamin B12) 1,000 mcg DAILY PO 04/25/17 09:00 04/25/17 09:15 (Pepcid) 20 mg BID PO 04/24/17 21:00 04/25/17 09:14 (Folate) 1 mg DAILY PO 04/25/17 09:00 04/25/17 09:13 (Levemir Inj) 7 units HS SQ 04/24/17 21:00 04/24/17 21:15 (Duoneb Neb) 1 ampule Q6HR NEB INH 04/24/17 16:00 04/25/17 09:14 (Synthroid) 25 mcg DAILY@0600 PO 04/25/17 06:00 04/25/17 05:43 (Rheumatrex) 10 mg Q7D PO 04/24/17 13:00 04/24/17 12:54 (Miralax) 17 gm DAILY PO 04/25/17 09:00 04/25/17 09:16 (Zofran Odt) 4 mg Q4H PRN PO 04/24/17 12:15 (NovoLOG SUPPLEMENTAL SCALE) 1 ACHS SQ 04/24/17 12:00 04/25/17 12:22 (D50w (Vial) Inj) 25 ml UNSCH PRN IV 04/24/17 11:45 (Glucagon Inj) 1 mg UNSCH PRN IM/SQ 04/24/17 11:45 (Brandon Juarez) 1 lozenge UNSCH PRN BUCCAL 04/25/17 13:15 UNV Allergies Allergies Coded Allergies No Known Drug Allergies (Verified Allergy, Unknown, 03/12/17) Uncoded Allergies PACEMAKER UNDER 6 WEEKS ( Adverse Reaction, Severe, PACEMAKER UNDER 6 WEEKS, DML 04/24/17, 04/24/17) Review of Systems All other ROS: ROS reviewed as documented in chart Exam I&O / VS Vital Signs Date Time Temp Pulse Resp B/P (MAP) Pulse Ox O2 Delivery O2 Flow Rate FiO2 04/25/17 10:00 72 04/25/17 09:15 95 Nasal Cannula 2.00 04/25/17 08:00 62 04/25/17 08:00 98.4 62 14 132/63 (86) 96 04/25/17 07:00 96 Nasal Cannula 2.00 04/25/17 06:00 60 04/25/17 04:00 67 04/25/17 04:00 98.4 67 22 173/77 (109) 97 04/25/17 02:00 63 04/25/17 00:00 97.7 69 20 153/78 (103) 97 04/25/17 00:00 69 04/24/17 22:00 64 04/24/17 20:55 100 Nasal Cannula 2.00 04/24/17 20:00 97.4 63 22 159/74 (102) 98 04/24/17 20:00 72 04/24/17 20:00 98 Nasal Cannula 2.00 04/24/17 18:00 71 04/24/17 16:27 100 Nasal Cannula 2.00 04/24/17 16:00 63 04/24/17 16:00 97.8 63 13 135/60 (85) 100 04/24/17 14:00 62 General: Alert and Oriented, No acute distress Respiratory: Lungs CTA, Non-labored respirations, BS equal, Symmetrical expansion, Other Cardiology: Normal rate, No murmur, Intact pulses, Regular Rhythm, Other Musculoskeletal: ROM, Swelling, No calf tenderness Neurologic: Alert, Oriented, Normal motor, CN II-XII intact, Normal DTR's Psychiatric: Cooperative, Appropriate mood & affect Exam Comments alerts, ox 2-3, more conversant and appropriate, repeats, names, follows, mild dysarthric speech, eomi, face sym, ou 3mm sluggish, humphrey to gravity but left ue in brace 2/2 recent pacemaker insertion, no clonus, planterflexor Objective Micro and Labs Laboratory Tests Test 04/25/17 04:00 White Blood Count 5.5 Red Blood Count 3.77 Hemoglobin 11.7 Hematocrit 34.7 Mean Corpuscular Volume 91.9 Mean Corpuscular Hemoglobin 31.1 Mean Corpuscular Hemoglobin Concent 33.8 Red Cell Distribution Width 16.2 Platelet Count 223 Mean Platelet Volume 7.8 Neutrophils (%) (Auto) 57.5 Lymphocytes (%) (Auto) 20.6 Monocytes (%) (Auto) 10.3 Eosinophils (%) (Auto) 11.1 Basophils (%) (Auto) 0.5 Neutrophils # (Auto) 3.2 Lymphocytes # (Auto) 1.1 Monocytes # (Auto) 0.6 Eosinophils # (Auto) 0.6 Basophils # (Auto) 0.0 CBC Comment DIFF FINAL Differential Comment Blood Urea Nitrogen 17 Creatinine 0.92 Random Glucose 105 Total Protein 6.8 Albumin 2.5 Calcium Level 8.3 Alkaline Phosphatase 88 Aspartate Amino Transf (AST/SGOT) 21 Alanine Aminotransferase (ALT/SGPT) 16 Total Bilirubin 0.5 Sodium Level 139 Potassium Level 3.8 Chloride Level 101 Carbon Dioxide Level 33.0 Anion Gap 5 Estimat Glomerular Filtration Rate 77 Zackery Sin MD Apr 25, 2017 13:18
[2017-04-25] MEDS: ATORVASTATIN 10 MG TAB PO SCH (20:59)
[2017-04-25] MEDS: APIXABAN 2.5 MG TABLET PO SCH (21:00)
[2017-04-25] MEDS: INSULIN DETEMIR 100 UNITS/ML VIAL SQ SCH (21:00)
[2017-04-26 01:55] VITALS: BP 188/82; PULSE 85; RESP 18; TEMP 98.1; O2SAT 93
[2017-04-26] MEDS: RESP: ALBUTEROL 2.5 MG/IPRATROPIUM 0.5 MG NEB (SCH) INH ×3 (03:35→15:17)
[2017-04-26] MEDS: CHLORHEXIDINE GLUCONATE 2 % 1 PACK (2 CLOTHS) TOP SCH (04:00)
--- NOTE | 2017-04-26 05:31 | MG ---
cc: DERRELL PIZARRO MD Lab No: [id number] Date: 04/24/2017 Age: 89 Sex: M Race: DATE OF 1925 INDICATIONS An 89-year-old with a history of mental status changes. FINDINGS Dyssynchronous beta frequencies, occasional delta 20-40 microvolts suggestive of drowsy state. During arousals background incremented up to 6-8 Hz. Drowsy and stage I sleep. Occasional brief arousals. Limited driving with photic stimulation. Single lead EKG showing sinus rhythm. INTERPRETATION Minimal encephalopathy and sleep state. Clinical correlation. Derrell Pizarro MD MG/SSB /11:10 PM /5:22 AM
[2017-04-26 06:06] VITALS: BP 178/84; PULSE 75; RESP 18; TEMP 98.3; O2SAT 93
[2017-04-26] MEDS: LEVOTHYROXINE SODIUM 25 MCG TAB PO SCH (06:21)
[2017-04-26 08:00] VITALS: BP 144/78; PULSE 72; RESP 18; TEMP 98; O2SAT 94
[2017-04-26] MEDS: INSULIN ASPART SUPPLEMENTAL SCALE SQ SCH ×3 (08:00→17:00)
--- NOTE | 2017-04-26 08:31 | HHI.PR ---
Review/Management Diagnosis/Plan: (1) Acute embolic stroke within last 8 weeks Status: Acute Plan: possible new/subacute infarct vs syncopal episode, ? watch for SIRS/ sepsis neuro improved with mild dysarthria- ?baseline, dehydration. not tpa candidate for minimal nihss, resolved symptoms, recent pacemaker insertion ct brain showing small infarct- unknown time. was noted to be confused on admission and at [facility]- may have had an infarct there pt with multiple cardiac morbidities recs probable sundowning seroquel bid prn for confusion can go back to [facility] (2) H/O heart artery stent ICD Codes: Z95.5 - Presence of coronary angioplasty implant and graft Status: Chronic (3) Congestive heart failure ICD Codes: I50.9 - Heart failure, unspecified Status: Chronic (4) Dementia ICD Codes: F03.90 - Unspecified dementia without behavioral disturbance Status: Chronic (5) Syncope ICD Codes: R55 - Syncope and collapse Status: Acute (6) Frequent falls ICD Codes: R29.6 - Repeated falls Status: Acute (7) FH: CABG (coronary artery bypass surgery) ICD Codes: Z84.89 - Family history of other specified conditions Subjective Subjective Comments some confusion overnight No headache No chest pain No dyspnea Active Medications Current Medications Medications (Trade) Dose Ordered Sig/Fabien Route Start Time Stop Time Status Last Admin (NS Flush) 2 ml UNSCH PRN IV FLUSH 04/24/17 10:00 (NS Flush) 2 ml BID IV FLUSH 04/24/17 21:00 04/25/17 21:01 (Tylenol) 650 mg Q6H PRN PO 04/24/17 10:00 (Duoneb Neb) 1 ampule Q4HR NEB PRN INH 04/24/17 10:00 Miscellaneous Information 1 Q361D XX 04/24/17 10:00 (Chlorhexidine 2% Cloth) 3 pack Taper DAILY@04 TOP 04/25/17 04:00 04/21/18 03:59 (Chlorhexidine 2% Cloth) 3 pack UNSCH PRN TOP 04/24/17 10:00 (Francy-Colace) 1 tab BID PO 04/24/17 21:00 04/25/17 20:59 (Milk Of Magnesia Liq) 30 ml Q12H PRN PO 04/24/17 10:00 (Senokot) 17.2 mg Q12H PRN PO 04/24/17 10:00 (Dulcolax Supp) 10 mg DAILY PRN RECTAL 04/24/17 10:00 (Lactulose Liq) 30 ml DAILY PRN PO 04/24/17 10:00 (Tylenol) 650 mg Q4H PRN PO 04/24/17 11:30 (Proair Hfa Inh) 2 puff Q4HR PRN INH 04/24/17 11:30 (Norvasc) 5 mg DAILY PO 04/25/17 09:00 04/25/17 09:14 (Ecotrin Ec) 81 mg DAILY PO 04/24/17 11:30 04/25/17 09:13 (Lipitor) 10 mg HS PO 04/24/17 21:00 04/25/17 20:59 (Cleocin) 300 mg TID PO 04/24/17 13:00 04/25/17 16:59 (Vitamin B12) 1,000 mcg DAILY PO 04/25/17 09:00 04/25/17 09:15 (Pepcid) 20 mg BID PO 04/24/17 21:00 04/25/17 21:00 (Folate) 1 mg DAILY PO 04/25/17 09:00 04/25/17 09:13 (Levemir Inj) 7 units HS SQ 04/24/17 21:00 04/25/17 21:00 (Duoneb Neb) 1 ampule Q6HR NEB INH 04/24/17 16:00 04/26/17 07:35 (Synthroid) 25 mcg DAILY@0600 PO 04/25/17 06:00 04/26/17 06:21 (Rheumatrex) 10 mg Q7D PO 04/24/17 13:00 04/24/17 12:54 (Miralax) 17 gm DAILY PO 04/25/17 09:00 04/25/17 09:16 (Zofran Odt) 4 mg Q4H PRN PO 04/24/17 12:15 (NovoLOG SUPPLEMENTAL SCALE) 1 ACHS SQ 04/24/17 12:00 04/25/17 21:02 (D50w (Vial) Inj) 25 ml UNSCH PRN IV 04/24/17 11:45 (Glucagon Inj) 1 mg UNSCH PRN IM/SQ 04/24/17 11:45 ([place] Juarez) 1 lozenge UNSCH PRN BUCCAL 04/25/17 13:15 04/25/17 14:52 (Eliquis) 2.5 mg BID PO 04/25/17 21:00 04/25/17 21:00 Allergies Allergies Coded Allergies No Known Drug Allergies (Verified Allergy, Unknown, 03/12/17) Uncoded Allergies PACEMAKER UNDER 6 WEEKS ( Adverse Reaction, Severe, PACEMAKER UNDER 6 WEEKS, DML 04/24/17, 04/24/17) Review of Systems All other ROS: ROS reviewed as documented in chart Exam I&O / VS Vital Signs Date Time Temp Pulse Resp B/P (MAP) Pulse Ox O2 Delivery O2 Flow Rate FiO2 04/26/17 07:38 Nasal Cannula 2.00 04/26/17 06:06 98.3 75 18 178/84 (115) 93 04/26/17 05:37 93 Room Air 04/26/17 01:55 98.1 85 18 188/82 (117) 93 04/25/17 20:48 97.7 74 17 155/71 (99) 94 04/25/17 16:00 98.5 73 19 142/65 (90) 98 04/25/17 15:16 95 Nasal Cannula 2.00 04/25/17 14:09 95 Nasal Cannula 2.00 04/25/17 10:00 72 04/25/17 09:15 95 Nasal Cannula 2.00 General: Alert and Oriented, No acute distress Respiratory: Non-labored respirations, BS equal, Symmetrical expansion, Other Cardiology: Normal rate, Intact pulses, Regular Rhythm, Other Musculoskeletal: ROM, Swelling, No calf tenderness Neurologic: Alert, Oriented, Normal motor, CN II-XII intact, Normal DTR's Psychiatric: Cooperative, Appropriate mood & affect Exam Comments alerts, ox 1, more conversant and appropriate, repeats, names, follows, mild dysarthric speech, eomi, face sym, ou 3mm sluggish, humphrey to gravity but left ue in brace 2/2 recent pacemaker insertion, no clonus, planterflexor Zackery Sin MD Apr 26, 2017 08:31
[2017-04-26] MEDS ORDERED: QUEtiapine FUMARATE 25 MG TAB PO PRN (09:00)
[2017-04-26] MEDS: POLYETHYLENE GLYCOL 17 GM PKG PO SCH (09:00)
[2017-04-26] MEDS: ASPIRIN EC 81 MG TABEC PO SCH (10:47)
[2017-04-26] MEDS: APIXABAN 2.5 MG TABLET PO SCH (10:47)
[2017-04-26] MEDS: SODIUM CHLORIDE 0.9% FLUSH 10 ML FLUSH IV FLUSH SCH (10:47)
[2017-04-26] MEDS: DOCUSATE SODIUM 50 MG/SENNA 8.6 MG TAB PO SCH (10:47)
[2017-04-26] MEDS: CYANOCOBALAMIN 1,000 MCG TAB PO SCH (10:48)
[2017-04-26] MEDS: FOLIC ACID 1 MG TAB PO SCH (10:48)
[2017-04-26] MEDS: CLINDAMYCIN 150 MG CAP PO SCH ×3 (10:48→17:43)
[2017-04-26] MEDS: amLODIPine BESYLATE 5 MG TAB PO SCH (10:48)
[2017-04-26] MEDS: FAMOTIDINE 20 MG TAB PO SCH (10:49)
[2017-04-26] MEDS ORDERED: APIX2.5T PO (10:58)
[2017-04-26] MEDS ORDERED: AMLO5 PO (10:58)
--- NOTE | 2017-04-26 11:25 | PD.CONS ---
Consult Service Palliative Care Consult Requested By Dr. Meyers . Primary Care Physician Unknown in [place] . Reason for Consultation a. To assist with evaluation and management of symptoms including: Agitation , altered mental status b. To assist medical decision maker(s) with: better understanding of current medical conditions; weighing benefits/burdens of medical treatment options; making medical treatment decisions. . HPI History of Present Illness This 89-year-old male, with a past history of COPD, diabetes, and Alzheimer's dementia, has been declining over the past several months. My initial history is obtained from the medical records and from the patient, but it is noted that the patient is not oriented to place or date, and that he has been confused; subsequently, I spoke with the patient's son Darnell by telephone. Because of weakness and unsteady gait during recent weeks, he has reportedly had several falls. The patient had been admitted to [facility] in [place] because of bradycardia, falls, and syncope or near syncope last month. He was transferred to [facility] here on 03/12/17 and was to begin attempted rehab services. However, the following day, the patient developed weakness, was ashen and more confused, and a CODE BLUE was called; he did not require ventilatory assistance or CPR, was transferred to the [facility], and his symptoms seemed to resolve that day. An echocardiogram revealed an ejection fraction of 50-55%, and carotid Dopplers showed obstruction of only 50 % of the internal carotid. By 03/17/18, the patient was transferred back to [facility]. He he was able to continue therapy and was discharged from the facility on . The patient was admitted again to [facility] in [place] on 04/17/17 , was reportedly felt to have a second-degree heart block, and had a pacemaker placed on 04/18/17. He was subsequently transferred back here to [facility] on 04/19/17 and started rehabilitation services again. However, on 04/23/17, the patient developed near syncope, had fever, and complained of sore throat. His white count was 5.5, hemoglobin 10.7, creatinine 0.92, sodium 139, and albumin 2.5. He was transferred back to [facility] on 04/24/17 after he had developed acute altered mental status, slurred speech, and was felt to possibly have a right facial droop. CT scan of the brain at that time revealed a possible subacute left frontoparietal infarction, and possibly an old right occipital stroke. By the time the patient was transferred to [facility] and was evaluated again, the symptoms had resolved. Further workup for the "Stroke Alert" included CTA of the brain and carotids that were essentially unremarkable. Cardiology evaluation revealed some episodes of paroxysmal atrial fibrillation on 04/25/17. An EEG was done on 04/26/17 and was consistent with minimal encephalopathy. The patient's confusion was felt to possibly be representing sundowning. In recent days, consideration was being given for a return to [facility] again. Palliative Care was consulted to assist with symptom management, and to enter into discussions with patient or decision makers/family regarding his illnesses , the prognosis, and the benefits and burdens of the various treatment choices. . Function/Cognitive Trajectory The patient has been in and out of the hospital for the past 6 weeks, and has been living with his son Darnell recently. The patient says he has been able to get around on his own, but he does admit to having several falls; "I think I fell 14 times altogether." The patient's son reports that the patient was fairly independent a couple months ago, but that his confusion and weakness have worsened since then. . Review of Systems ROS Limitations: Altered Mental Status (chronic confusion) Constitutional: COMPLAINS OF: Fever (one occurrence on 04/24/17) Endocrine: DENIES: Polyuria Eyes: DENIES: Eye inflammation Ears, nose, mouth, throat: DENIES: Epistaxis Respiratory: DENIES: Cough, Shortness of breath Cardiovascular: COMPLAINS OF: Syncope, DENIES: Chest pain Gastrointestinal: DENIES: Bloody stools, Constipation, Diarrhea, Vomiting, Vomiting blood Genitourinary: DENIES: Hematuria Musculoskeletal: DENIES: Back pain, Neck pain Integumentary: DENIES: Rash Hematologic/Lymphatics: DENIES: Bruising Immunologic/Allergic: DENIES: Urticaria Neurologic: DENIES: Headache, Localized weakness, Paresthesias, Seizures Psychiatric: COMPLAINS OF: Confusion, Agitation (in 4. restraints at this time) , DENIES: Hallucinations Past Family Social History Coded Allergies: No Known Drug Allergies (Verified Allergy, Unknown, 03/12/17) Uncoded Allergies: PACEMAKER UNDER 6 WEEKS (Adverse Reaction, Severe, PACEMAKER UNDER 6 WEEKS , DML 04/24/17, 04/24/17) PACEMAKER IMPLANTED 04/18/17 PER [facility] 3RD FLOOR Past Medical History * Altered mental status, recent TIA, history of dementia * History of Alzheimer's dementia * Probable TIA 04/24/17 * Recent syncope, recent pacemaker placement, history of paroxysmal atrial fibrillation during this hospitalization * Intermittent atrial fibrillation 04/25/17 * COPD * Diabetes * History of pneumonia * Hypertension * Hyperlipidemia * Chronic hearing loss * RA * Hypothyroid * History of prostate cancer . Past Surgical History * Left knee replacement years ago * Kyphoplasties * CABG * Laparotomy * Cardiac stents 5 * Pacemaker 04/18/17 . Reported Medications Reported Meds & Active Scripts Active Norvasc (Amlodipine Besylate) 5 Mg Tab 5 Mg PO DAILY Famotidine 20 Mg Tab 20 Mg PO BID Folic Acid 1 Mg Tablet 1 Tab PO DAILY Lipitor (Atorvastatin Calcium) 10 Mg Tab 10 Mg PO HS Proair Hfa 8.5 GM Inh (Albuterol Sulfate) 90 Mcg/Act Aer 2 Puff INH Q4-6H PRN 30 Days 108 mcg/actuation Clopidogrel (Clopidogrel Bisulfate) 75 Mg Tab 75 Mg PO DAILY Synthroid (Levothyroxine Sodium) 25 Mcg Tab 25 Mcg PO DAILY@0600 Aspirin 81 (Aspirin) 81 Mg Tabdr 81 Mg PO DAILY Reported Miralax Powder (Polyethylene Glycol 3350 Powder) 17 Gm Powd 17 Gm PO DAILY Mix and dissolve one measuring cap-ful (17 grams) in water or juice. Methotrexate 2.5 Mg Tab 10 Mg PO Q7D Duoneb (Ipratropium-Albuterol Neb) 0.5-2.5 Mg/3 Ml Neb 1 Nebule INH Q6HR NEB Levemir Inj (Insulin Detemir) 1,000 unit/ 10 ML Vial 7 Units SQ HS Do not mix with any other Insulin. Clindamycin (Clindamycin HCl) 300 Mg Cap 300 Mg PO TID Humalog Inj (Insulin Human Lispro) 1,000 Unit/10 Ml Vial 2-7 Units SQ ACHS Max dose at bedtime:( )units; sugars < 70,(0)units; sugars 150-199,(2)units; sugars 200-249,(4)units; sugars 250-299,(7)units; sugars 300-349,(10)units; sugars more than 349,(12)units. Docusate Sodium Liq (Docusate Sodium) 50 Mg/5 Ml Liq 200 Mg PO BID Vitamin B-12 (Cyanocobalamin) 1,000 Mcg Tab 1,000 Mcg PO DAILY Roxicodone (Oxycodone HCl) 5 Mg Tab 5 Mg PO Q6H PRN Zofran (Ondansetron HCl) 4 Mg Tab 4 Mg PO Q6HR PRN Tylenol (Acetaminophen) 325 Mg Tab 650 Mg PO Q4H PRN . Current Medications Medications (Trade) Dose Ordered Sig/Fabien Route Start Time Stop Time Status Last Admin (NS Flush) 2 ml UNSCH PRN IV FLUSH 04/24/17 10:00 (NS Flush) 2 ml BID IV FLUSH 04/24/17 21:00 04/25/17 21:01 (Tylenol) 650 mg Q6H PRN PO 04/24/17 10:00 (Duoneb Neb) 1 ampule Q4HR NEB PRN INH 04/24/17 10:00 Miscellaneous Information 1 Q361D XX 04/24/17 10:00 (Chlorhexidine 2% Cloth) 3 pack Taper DAILY@04 TOP 04/25/17 04:00 04/21/18 03:59 (Chlorhexidine 2% Cloth) 3 pack UNSCH PRN TOP 04/24/17 10:00 (Francy-Colace) 1 tab BID PO 04/24/17 21:00 04/25/17 20:59 (Milk Of Magnesia Liq) 30 ml Q12H PRN PO 04/24/17 10:00 (Senokot) 17.2 mg Q12H PRN PO 04/24/17 10:00 (Dulcolax Supp) 10 mg DAILY PRN RECTAL 04/24/17 10:00 (Lactulose Liq) 30 ml DAILY PRN PO 04/24/17 10:00 (Tylenol) 650 mg Q4H PRN PO 04/24/17 11:30 (Proair Hfa Inh) 2 puff Q4HR PRN INH 04/24/17 11:30 (Norvasc) 5 mg DAILY PO 04/25/17 09:00 04/25/17 09:14 (Ecotrin Ec) 81 mg DAILY PO 04/24/17 11:30 04/25/17 09:13 (Lipitor) 10 mg HS PO 04/24/17 21:00 04/25/17 20:59 (Cleocin) 300 mg TID PO 04/24/17 13:00 04/25/17 16:59 (Vitamin B12) 1,000 mcg DAILY PO 04/25/17 09:00 04/25/17 09:15 (Pepcid) 20 mg BID PO 04/24/17 21:00 04/25/17 21:00 (Folate) 1 mg DAILY PO 04/25/17 09:00 04/25/17 09:13 (Levemir Inj) 7 units HS SQ 04/24/17 21:00 04/25/17 21:00 (Duoneb Neb) 1 ampule Q6HR NEB INH 04/24/17 16:00 04/26/17 07:35 (Synthroid) 25 mcg DAILY@0600 PO 04/25/17 06:00 04/26/17 06:21 (Rheumatrex) 10 mg Q7D PO 04/24/17 13:00 04/24/17 12:54 (Miralax) 17 gm DAILY PO 04/25/17 09:00 04/25/17 09:16 (Zofran Odt) 4 mg Q4H PRN PO 04/24/17 12:15 (NovoLOG SUPPLEMENTAL SCALE) 1 ACHS SQ 04/24/17 12:00 04/25/17 21:02 (D50w (Vial) Inj) 25 ml UNSCH PRN IV 04/24/17 11:45 (Glucagon Inj) 1 mg UNSCH PRN IM/SQ 04/24/17 11:45 ([place]) 1 lozenge UNSCH PRN BUCCAL 04/25/17 13:15 04/25/17 14:52 (Eliquis) 2.5 mg BID PO 04/25/17 21:00 04/25/17 21:00 (SEROquel) 25 mg Q12HR PRN PO 04/26/17 09:00 Family History The patient's father reportedly had COPD, and his mother of cancer. The patient's son has cardiac issues followed by a booking agent, and obesity (he says he weighs >400 lbs). . Substance Use Tobacco: Smoked for many years but reportedly quit about 40 years ago Alcohol: Records indicate former heavy alcohol consumption but none in recent years Prescription med abuse: None Illicits: None . Psychosocial History The patient reports he was born and raised in [place], but moved to [place] more than 40 years ago. He has been living with his son Darnell in [place]. 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 He was , in 2007 The patient reports he has 3 sons: He lives with Darnell in [place], son Sarkis lives in [facility], and son Brandon lives in [place]. . Spiritual/Cultural Factors The patient reports he is not spiritual or jewish, and he does not desire mash processing operator visits. . Living Will: Completed, but not made available (patient claims he has a living will "at home") Health Care Surrogate: Completed, but not made available Durable Power of Video Tape Editor: Never completed Health Care Surrogate(s): Son Darnell Royal . Documented care wishes: The patient reportedly has a living will, but the son is not sure where it is. . Today's verbally stated goals: The patient states "I just want to get better," but it is difficult to know how much she understands of the discussion regarding his recent decline in complex medical issues. . Family/friends goals: The patient and his son are hoping the patient can return to [facility] soon and perhaps improve with therapy. The patient's son understands that the patient has been declining in recent weeks and that that decline may continue; he understands he may see further complications as the confusion and weakness worsened. . Ethical and Legal Issues There are no ethical issues that would impact his care or decision-making at this time. I do not believe the patient has capacity for independent medical decision- making at the time of my evaluation; it is clear that his son Darnell, with whom he lives, has been functioning as decision-maker, and Darnell confirms that he is the [place]. . Physical Exam Vital Signs Date Time Temp Pulse Resp B/P (MAP) Pulse Ox O2 Delivery O2 Flow Rate FiO2 04/26/17 07:38 Nasal Cannula 2.00 04/26/17 06:06 98.3 75 18 178/84 (115) 93 04/26/17 05:37 93 Room Air 04/26/17 01:55 98.1 85 18 188/82 (117) 93 04/25/17 20:48 97.7 74 17 155/71 (99) 94 04/25/17 16:00 98.5 73 19 142/65 (90) 98 04/25/17 15:16 95 Nasal Cannula 2.00 04/25/17 14:09 95 Nasal Cannula 2.00 Exam CONSTITUTIONAL/GENERAL: This is an adequately nourished patient, in no apparent distress but with intermittent agitation. TUBES/LINES/DRAINS: 4-point restraints SKIN: No jaundice, rashes, or lesions. Ecchymoses on upper extremities. No wounds seen anteriorly. Skin temperature appropriate. Not diaphoretic. HEAD: Atraumatic. Normocephalic. EYES: Pupils equal and round and reactive. Extraocular motions intact. No scleral icterus. No injection or drainage. Fundi not examined. ENT: Hearing somewhat diminished. Nose without bleeding or purulent drainage. Throat without visible erythema, exudates, masses, or lesions. NECK: Trachea midline. Supple, nontender. No palpable thyroid enlargement or nodularity. CARDIOVASCULAR: Regular rate and rhythm without murmurs, gallops, or rubs. No JVD. Peripheral pulses diminished. RESPIRATORY/CHEST: Symmetric, unlabored respirations. Clear to auscultation. Breath sounds equal bilaterally. No wheezes, rales, or rhonchi. GASTROINTESTINAL: Abdomen soft, non-tender, nondistended. No hepato-splenomegaly , or palpable masses. No guarding. Bowel sounds present. GENITOURINARY: Without palpable bladder distension. MUSCULOSKELETAL: Extremities without clubbing, cyanosis, or edema. No joint tenderness or effusion noted. No calf tenderness. No mottling or clubbing. LYMPHATICS: No palpable cervical or supraclavicular adenopathy. NEUROLOGICAL: Awake and alert. Motor and sensory grossly within normal limits. Follows simple commands. Not oriented to place, day, or year. Moves all extremities. PSYCHIATRIC: No obvious anxiety/depression. no apparent hallucinations or other psychotic thought process. . Diagnostic Tests Laboratory Laboratory Tests Test 04/24/17 08:19 04/25/17 04:00 Triglycerides Level 90 MG/DL (42-150) Cholesterol Level 125 MG/DL (120-200) LDL Cholesterol 54 MG/DL (0-99) HDL Cholesterol 53.1 MG/DL (40.0-60.0) Cholesterol/HDL Ratio 2.35 RATIO Vitamin B12 Level 650 PG/ML (193-986) Thyroid Stimulating Hormone 3rd Gen 2.950 uIU/ML (0.358-3.740) White Blood Count 5.5 TH/MM3 (4.0-11.0) Red Blood Count 3.77 MIL/MM3 (4.50-5.90) Hemoglobin 11.7 GM/DL (13.0-17.0) Hematocrit 34.7 % (39.0-51.0) Mean Corpuscular Volume 91.9 FL (80.0-100.0) Mean Corpuscular Hemoglobin 31.1 PG (27.0-34.0) Mean Corpuscular Hemoglobin Concent 33.8 % (32.0-36.0) Red Cell Distribution Width 16.2 % (11.6-17.2) Platelet Count 223 TH/MM3 (150-450) Mean Platelet Volume 7.8 FL (7.0-11.0) Neutrophils (%) (Auto) 57.5 % (16.0-70.0) Lymphocytes (%) (Auto) 20.6 % (9.0-44.0) Monocytes (%) (Auto) 10.3 % (0.0-8.0) Eosinophils (%) (Auto) 11.1 % (0.0-4.0) Basophils (%) (Auto) 0.5 % (0.0-2.0) Neutrophils # (Auto) 3.2 TH/MM3 (1.8-7.7) Lymphocytes # (Auto) 1.1 TH/MM3 (1.0-4.8) Monocytes # (Auto) 0.6 TH/MM3 (0-0.9) Eosinophils # (Auto) 0.6 TH/MM3 (0-0.4) Basophils # (Auto) 0.0 TH/MM3 (0-0.2) CBC Comment DIFF FINAL Differential Comment Blood Urea Nitrogen 17 MG/DL (7-18) Creatinine 0.92 MG/DL (0.60-1.30) Random Glucose 105 MG/DL (74-106) Total Protein 6.8 GM/DL (6.4-8.2) Albumin 2.5 GM/DL (3.4-5.0) Calcium Level 8.3 MG/DL (8.5-10.1) Alkaline Phosphatase 88 U/L (45-117) Aspartate Amino Transf (AST/SGOT) 21 U/L (15-37) Alanine Aminotransferase (ALT/SGPT) 16 U/L (12-78) Total Bilirubin 0.5 MG/DL (0.2-1.0) Sodium Level 139 MEQ/L (136-145) Potassium Level 3.8 MEQ/L (3.5-5.1) Chloride Level 101 MEQ/L (98-107) Carbon Dioxide Level 33.0 MEQ/L (21.0-32.0) Anion Gap 5 MEQ/L (5-15) Estimat Glomerular Filtration Rate 77 ML/MIN (>89) Result Diagram: 04/25/17 0400 04/25/17 0400 Procedures Recent pacemaker 04/18/17 . Patient/Family Conference Present at Family Conference: Initially the patient and I in his room, and then son Darnell by telephone . Family Conference Time (mins): 56 Family Conference Location: Bedside, Telephone Issues Discussed: * Palliative care role, purpose, approach * Additional medical, psychosocial, and spiritual history * Patients general health, functional status, and cognitive changes in the months leading up to the current hospitalization * Patient/family understanding of the current medical problems * Patient/family understanding of prognosis * Patients goals of care as best understood from advance directives and/or conversations and/or values * Current medical treatment options and benefits/burdens of those options * Likely scenarios comparing ongoing aggressive care with a transition to comfort measures only * Questions answered to the best of my ability * Palliative care contact information provided The patient and his son are hoping the patient can return to [facility] soon and perhaps improve with therapy. The patient's son understands that the patient has been declining in recent weeks and that that decline may continue; he understands he may see further complications as the confusion and weakness worsened. . Assessment and Plan Disease Oriented Problem List: (1) altered mental status, recent TIA, history of dementia (2) recent progression of confusion and dementia symptoms (3) probable TIA 04/24/17 (4) recent syncope, recent pacemaker placement, history of paroxysmal atrial fibrillation during this hospitalization (5) intermittent atrial fibrillation 04/25/17 (6) COPD (7) diabetes (8) history of pneumonia (9) hypertension (10) hyperlipidemia (11) chronic hearing loss (12) rheumatoid arthritis (13) hypothyroid (14) history of prostate cancer Symptom Scale: (1) agitation 0-10 Scale: 3 (he has been placed in restraints here at the hospital) (2) altered mental status 0-10 Scale: Unable to quantify (possibly due to progression of his dementia) Pertinent Non-Medical Issues Psychosocial: Originally from [place], and [place] for many years. Lives with son Darnell. Retired automation qa analyst Spiritual: Not spiritual or jewish, does not want mash processing operator visit Legal: I do not believe the patient has capacity for independent medical decision-making at the time of my evaluation; it appears that his son Darnell, with whom he lives, has been functioning as decision-maker. Ethical issues impacting care: None . Important Contacts Son: Darnell Royal [phone] . Prognosis The patient has been declining in recent weeks and months, and has been in and out of the hospital multiple times during that timeframe. His dementia symptoms seem to be progressive. Overall, his prognosis is guarded . Code Status: Full Code Plan * FULL CODE: The patient's son says he would want cardiac resuscitation attempted, but that the patient "would not want to be kept on life support machines very long." * DECISION-MAKING: I do not believe the patient has capacity for independent medical decision-making at the time of my evaluation; it appears that his son Darnell, with whom he lives, has been functioning as decision-maker. * SYMPTOMS: The patient denies pain or dyspnea at the time I am seeing him. He has some agitation and considerable confusion, and is in 4. restraints at the time of my initial visit. Seroquel has been recommended by neurology, and the patient is being considered for anticoagulation * GOALS: The patient and his son are hoping the patient can return to [facility] soon and perhaps improve again with therapy. The patient's son understands that the patient has been declining in recent weeks and that that decline may likely continue; he understands he may see further complications as the confusion and weakness worsened, and he is aware that decisions about aggressive care versus transition to comfort care will be faced in the upcoming weeks or months. * Palliative Care will continue to follow the patient during this hospitalization. . Time Spent Total Floor Time (mins): 79 Face to Face Time (mins): 61 >50% Counseling/Coord of Care: Yes (d/w RN) Thank you for the opportunity to participate in the care of Mr. Royal. Attestation To help prompt me to consider important information that might be impacting today's encounter and assessment, information from prior notes written by myself or my colleagues may have been "brought forward" into today's note. My signature on this note, however, is an attestation that I personally performed the exam, history, and/or decision-making noted today, and, unless otherwise indicated, the interactions with patient, family, and staff as well as the review of records all occurred today. I also attest that the listed assessment and stated plan reflect my best clinical judgment today based on the combination of historical information, prior notes, and today's exam/ interactions. When time spent is documented, it refers only to time spent today by the signer, or if indicated, combined time spent today by collaborating physician/nurse practitioner. Ernestine Walters MD Apr 26, 2017 11:25
[2017-04-26 12:00] VITALS: BP 140/70; PULSE 75; RESP 18; TEMP 98.4; O2SAT 98
--- NOTE | 2017-04-26 14:38 | RADRPT ---
EXAM DATE/TIME: 04/26/2017 13:19 [facility] COMPARISON: CT BRAIN W/O CONTRAST, April 24, 2017, 8:30. INDICATIONS : Stroke RADIATION DOSE: 35.11 CTDIvol (mGy) MEDICAL HISTORY : Cardiovascular disease. Hypertension. Carcinoma, prostate.Diabetes SURGICAL HISTORY : Pacemaker. ENCOUNTER: Initial ACUITY: 1 day PAIN SCALE: 0/10 LOCATION: cranial TECHNIQUE: Multiple contiguous axial images were obtained of the head. Using automated exposure control and adj ustment of the mA and/or kV according to patient size, radiation dose was kept as low as reasonably a chievable to obtain optimal diagnostic quality images. DICOM format image data is available electro nically for review and comparison. FINDINGS: There is no evidence of acute cortical infarction, acute hemorrhage, mass effect or midline shift. Th e ventricles are enlarged with a prominent sulcal pattern compatible with atrophic change. Old right occipital infarct is present. Posterior fossa structures are unremarkable. CONCLUSION: 1. No evidence of acute intracranial pathology. No masses are identified. 2. Old right occipital infarct Zac Rajput MD on April 26, 2017 at 14:31 Board Certified Radiologist. This report was verified electronically.
--- NOTE | 2017-04-26 15:48 | HHI.PR ---
Objective Vitals Vital Signs Date Time Temp Pulse Resp B/P (MAP) Pulse Ox O2 Delivery O2 Flow Rate FiO2 04/26/17 15:42 Room Air 04/26/17 12:00 98.4 75 18 140/70 (93) 98 04/26/17 08:00 98.0 72 18 144/78 (100) 94 04/26/17 07:38 Nasal Cannula 2.00 04/26/17 06:06 98.3 75 18 178/84 (115) 93 04/26/17 05:37 93 Room Air 04/26/17 01:55 98.1 85 18 188/82 (117) 93 04/25/17 20:48 97.7 74 17 155/71 (99) 94 04/25/17 16:00 98.5 73 19 142/65 (90) 98 I/O 04/25/17 04/25/17 04/25/17 04/26/17 04/26/17 04/26/17 07:00 15:00 23:00 07:00 15:00 23:00 Intake Total 360 ml Output Total 500 ml 100 ml 400 ml Balance -140 ml -100 ml -400 ml Intake Oral 360 ml Output Urine Total 500 ml 100 ml 400 ml # Voids 1 # Bowel Movements 0 Result Diagram: 04/25/17 0400 04/25/17 0400 Objective Remarks GENERAL: This is a well-nourished, well-developed patient, in no apparent distress. SKIN: No rashes, warm and dry HEAD: Atraumatic. Normocephalic. EYES: Pupils equal round and reactive. Extraocular motions intact. No scleral icterus. ENT: Nose without bleeding, or drainage, Airway patent. NECK: Trachea midline. Supple CARDIOVASCULAR: Regular rate and rhythm without murmurs, gallops, or rubs. RESPIRATORY: Fair air entry bilaterally. No wheezes, rales, or rhonchi. GASTROINTESTINAL: Abdomen soft, non-tender, nondistended. Positive bowel sounds MUSCULOSKELETAL: Extremities without clubbing, cyanosis, or edema. Pedal pulses appreciated NEUROLOGICAL: Awake and alert. Moves all extremity. Normal speech.no focal neurological deficit A/P Assessment and Plan A/P: Syncope/ altered mental status Questionable right facial weakness which is now resolved. ? TIA versus hypoperfusion secondary to low blood pressure. Hypotension which is now resolved Coronary artery disease previous CABG Mild ischemic cardiomyopathy with EF 50% HTN COPD Symptomatic bradycardia Diabetes Prostate CA Hearing loss Hypothyroidism TIA Plan: Continue neuro checks. Neurology Dr. Sin consulted. Continue aspirin and Plavix. Unable to do MRI despite compatibility, need 6 weeks after pacemaker insertion. patient is on aspirin and Plavix with evidence of subacute infarct may require full anticoagulation though has just had a pacer inserted on April 18, 2017 at [facility]. Appreciate cardiology consultation they are not in favor of full anticoagulation. On clindamycin possibly for pacer insertion site. Continue all previous medications including aspirin and Plavix. Continue Levemir Need to clarify reason for methotrexate Sore throat we'll give sobia Consult palliative care to assist with deciding goals of therapy in this 89-year -old with multiple chronic medical problems and evidence of recurrent strokes to decide long-term goals of therapy. Ernestina Calix MD Apr 26, 2017 15:48
[2017-04-27] MEDS ORDERED: amLODIPine BESYLATE 5 MG TAB PO SCH (09:00)
[2017-04-27] MEDS ORDERED: PNEUMOCOCCAL POLYVALENT INJ 25 MCG/0.5 ML SYR IM ONE (10:00)
== END 2017-04-26 19:35 | DRG 66 ==
LOC: N03A 09:35 → N05A 04-25 11:36
PROVIDERS: ADMIT Hospitalist; ATTEND Hospitalist
PROC: 4B02XSZ Measurement of Cardiac Pacemaker, External Approach (ICD-10-PCS; principal; 2017-04-25)
DX: I63.40 Cerebral infarction due to embolism of unspecified cerebral artery (principal); I11.0 Hypertensive heart disease with heart failure; I95.9 Hypotension, unspecified; I50.9 Heart failure, unspecified; R00.1 Bradycardia, unspecified; F03.90 Unspecified dementia, unspecified severity, without behavioral disturbance, psychotic disturbance, mood disturbance, and anxiety; I48.0 Paroxysmal atrial fibrillation; R29.810 Facial weakness; R41.82 Altered mental status, unspecified; I44.1 Atrioventricular block, second degree; Z95.0 Presence of cardiac pacemaker; J44.9 Chronic obstructive pulmonary disease, unspecified; E11.9 Type 2 diabetes mellitus without complications; Z79.4 Long term (current) use of insulin; I25.10 Atherosclerotic heart disease of native coronary artery without angina pectoris; Z95.1 Presence of aortocoronary bypass graft; Z95.5 Presence of coronary angioplasty implant and graft; R29.6 Repeated falls; Z91.81 History of falling; Z86.73 Personal history of transient ischemic attack (TIA), and cerebral infarction without residual deficits; I25.5 Ischemic cardiomyopathy; H91.90 Unspecified hearing loss, unspecified ear; E03.9 Hypothyroidism, unspecified; Z79.82 Long term (current) use of aspirin; Z79.02 Long term (current) use of antithrombotics/antiplatelets; Z85.46 Personal history of malignant neoplasm of prostate; Z87.891 Personal history of nicotine dependence
CPT/HCPCS: 70450; 80053; 80061; 82607; 82948; 84443; 85025; 86850; 86900; 86901; 94640; 94664; 95819; J1650; J1815; J8610